=== PATIENT | female | born 1955 | race Caucasian/White ===

== ENCOUNTER → 2016-07-16 | Outpatient (CLI) | payer OTHER ==
[~2016-07-16] MED LIST: ASPCH81 PO; CLIN300C2 PO
--- NOTE | 2016-07-16 17:12 | MAMMOGRAPHY REPORT ---
BILATERAL DIGITAL SCREENING MAMMOGRAM TOMOSYNTHESIS WITH CAD: 07/16/2016 CLINICAL HISTORY: Routine screening. Patient has no complaints. TECHNIQUE: Breast tomosynthesis in addition to standard 2D mammography was performed. Current study was also evaluated with a Computer Aided Detection (CAD) system. COMPARISON: Comparison is made to exams dated: 04/11/2015 mammogram, 06/07/2013 mammogram - [facility], and 11/17/2008. BREAST COMPOSITION: There are scattered areas of fibroglandular density in both breasts. FINDINGS: There are scattered stable benign-appearing microcalcifications in the breasts. Stable n odularity in the anterior retroareolar left breast. No suspicious mass, architectural distortion or cluster of microcalcifications is seen. IMPRESSION: ACR BI-RADS CATEGORY 2: BENIGN There is no mammographic evidence of malignancy. A 1 year screening mammogram is recommended. The p atient will receive written notification of the results. Approximately 10% of breast cancers are not detected with mammography. A negative mammographic repor t should not delay biopsy if a clinically suggestive mass is present. Daiana Mann M.D. ay/:07/16/2016 16:54:43 Forensic Social Worker: Epifanio POWELL(Kingsley)(Nathalie), [facility] letter sent: Normal 1/2 BI-RADS Code: ACR BI-RADS Category 2: Benign
== END | disposition home or self-care (01) ==
LOC: C.MAMM 15:21
PROVIDERS: ATTEND Obstetrics & Gynecology
DX: Z12.31 Encounter for screening mammogram for malignant neoplasm of breast (principal)

== ENCOUNTER → 2016-10-14 | Outpatient (CLI) | payer OTHER | END | disposition home or self-care (01) | LOC: C.PAPS 16:12 | PROVIDERS: ATTEND Obstetrics & Gynecology | DX: Z12.4 Encounter for screening for malignant neoplasm of cervix (principal) ==

== ENCOUNTER → 2016-12-17 | Outpatient (CLI) | payer OTHER ==
[2016-12-24 17:33] LABS: IGA SERUM 75 mg/dL (81-463); TIS TRANS IGA 1 U/mL (<4)
== END | disposition home or self-care (01) ==
LOC: C.LABBC 13:53
PROVIDERS: ATTEND Internal Medicine Geriatric Medicine
DX: K52.9 Noninfective gastroenteritis and colitis, unspecified (principal); R51 Headache

== ENCOUNTER → 2017-02-02 | Day surgery (SDC) | payer OTHER ==
[2017-01-22 14:29] VITALS: Ht 177.8 cm; Wt 81.8 kg
[~2017-02-02] VITALS: Ht 177.8 cm; Wt 81.8 kg
[~2017-02-02] MED LIST changes: -ASPCH81 PO; -CLIN300C2 PO; +PROPOFOL IV EMULSION 10 MG/ML 20 ML VIAL IV ONE; +SODIUM CHLORIDE 0.9% 500ML 500 ML IV ONE
--- NOTE | 2017-02-02 10:34 | Endo History and Physical ---
History & Physical Date of Service: Feb 02, 2017. Chief Complaint: screening Referring Physician: Dr. Rome Thomas History of Present Illness 61 yo CF who presents for screening colonoscopy. Past Surgical History Hx Cardiac Surgery: No Hx Internal Defibrillator: No Hx Pacemaker: No Hx Abdominal Surgery: Yes (INFERTILITY SURGERY, D&C, LAPAROSCOPY) Hx of Implantable Prosthesis: No Hx Post-Op Nausea and Vomiting: No Hx Cancer Surgery: No Hx Thoracic Surgery: No Hx Orthopedic: No Hx Urinary Tract Surgery: No Family History IBD Social History Smoking Status: Never Smoker Hx Substance Use: No Hx Alcohol Use: Yes (VERY RARELY/2X YEARLY) Allergies Coded Allergies: Penicillins (Verified Allergy, Unknown, FAMILY HX OF REACTIONS, 01/22/17) Sulfa Antibiotics (Verified Allergy, Unknown, ITCHING, 01/22/17) Current Medications Reported Home Medications Medications Dose Route/Sig Max Daily Dose Days Date Category No Active Prescriptions or Reported Medications Rx Vital Signs Weight (Kilograms): 81.82 Height (Feet): 5 Height (Inches): 10 Date Time Temp Pulse Resp B/P (MAP) Pulse Ox O2 Delivery O2 Flow Rate FiO2 02/02/17 10:22 36.7 75 18 162/82 (108) 93 Room Air Physical Exam General Appearance: WD/WN, no apparent distress Respiratory/Chest: Auscultation: breath sounds normal Cardiovascular: Heart Auscultation: RRR Abdomen: Bowel Sounds: normal Inspection & Palpation: soft, non-distended, no tenderness, guarding & rebound Assessment and Plan Assessment: 61 yo CF who presents for screening colonoscopy. Plan: Proceed with colonoscopy.
--- NOTE | 2017-02-02 11:20 | Discharge Instructions ---
Endoscopy Patient Instructions Date / Procedure(s) Performed Feb 02, 2017. Colonoscopy Allergy Information Coded Allergies: Penicillins (Verified Allergy, Unknown, FAMILY HX OF REACTIONS, 01/22/17) Sulfa Antibiotics (Verified Allergy, Unknown, ITCHING, 01/22/17) Discharge Date / Findings Feb 02, 2017. Random colon biopsies Stool aspirate collected Internal hemorrhoids Medication Instructions OK to resume all medications today as prescribed Reported Home Medications Medications Dose Route/Sig Max Daily Dose Days Date Category No Active Prescriptions or Reported Medications Rx Provider Instructions Activity Restrictions - No exercising or heavy lifting for 24 hours. - Do not drink alcohol the day of the procedure. - Do not drive a car or operate machinery until the day after the procedure. - Do not make any important decisions or sign important papers in 24 hours after the procedure. Following Day: - Return to full activity which may include returning to work/school. Diet Start your diet with liquids and light foods (jello, soup, juice, toast). Then eat your usual diet if not nauseated. Treatment For Common After Affects For mild abdominal pain, bloating, or excessive gas: - Rest - Eat lightly - Lie on right side Follow-Up Information Follow-up with Dr. Rome Thomas as scheduled Anesthesia Information What You Should Know You have had a procedure that required some medicine to reduce anxiety and discomfort. This treatment is called moderate sedation. After receiving the treatment, you may be sleepy, but you will be able to breathe on your own. The effects of the treatment may last for several hours. Follow these instructions along with Activity/Diet recommendations noted above: * Do NOT do anything where dizziness or clumsiness would be dangerous. * Rest quietly at home today, then you can be up and about tomorrow. * Have a responsible person stay with you the rest of today. * You may have had an I.V. today. If so, you may take the dressing off later today. Recommendations Call your doctor if: * Trouble breathing * Continuous vomiting for more than 24 hours * Temperature above 101 degrees * Severe abdominal pain or bloating * Pain not relieved by pain medicine ordered * There is increased drainage or redness from any incision * A large amount of rectal bleeding greater than 2-3 tablespoons. (If you had a polyp/s removed or have hemorrhoids, a small amount of blood - from the rectum is to be expected.) * You have any unanswered questions or concerns. IN THE EVENT OF A SERIOUS EMERGENCY, GO TO THE NEAREST EMERGENCY ROOM Your discharge instructions were prepared by provider Ryland Niño. Patient Instructions Signature Page Ilda Gardner Patient (or Guardian) Signature/Date: I have read and understand the instructions given to me by my caregivers. Caregiver/RN/Doctor Signature/Date: The above-named patient and/or guardian has received patient instructions on this date. + Original Patient Signature Page (only) stays with chart. Please make copy for patient.
--- NOTE | 2017-02-02 11:25 | GI REPORT ---
Procedure Date: 02/02/2017 10:34 AM Procedure: Colonoscopy Indications: Screening for colorectal malignant neoplasm Medicines: Monitored Anesthesia Care Complications: No immediate complications. Estimated Blood Loss: Estimated blood loss: none. Procedure: Pre-Anesthesia Assessment: - Prior to the procedure, a History and Physical was performed, and patient medications and allergies were reviewed. The patient's tolerance of previous anesthesia was also reviewed. The risks and benefits of the procedure and the sedation options and risks were discussed with the patient. All questions were answered, and informed consent was obtained. Prior Anticoagulants: The patient has taken no previous anticoagulant or antiplatelet agents. ASA Grade Assessment: II - A patient with mild systemic disease. After reviewing the risks and benefits, the patient was deemed in satisfactory condition to undergo the procedure. After I obtained informed consent, the scope was passed under direct vision. Throughout the procedure, the patient's blood pressure, pulse, and oxygen saturations were monitored continuously. The scope was introduced through the anus and advanced to the terminal ileum. The colonoscopy was performed without difficulty. The patient tolerated the procedure well. The quality of the bowel preparation was good. The terminal ileum, ileocecal valve, appendiceal orifice, and rectum were photographed. Findings: Non-bleeding internal hemorrhoids were found during retroflexion. The hemorrhoids were small. Several random biopsies were obtained with cold forceps for histology in the entire colon. Fluid aspiration for cytology was performed in the entire colon. Impression: - Non-bleeding internal hemorrhoids. - Several random biopsies were obtained in the entire colon. - Fluid aspiration was performed. Recommendation: - Resume previous diet. - Continue present medications. - Repeat colonoscopy for surveillance based on pathology results. - Return to primary care physician as previously scheduled. Ryland Niño DO 02/02/2017 11:24:15 AM This report has been signed electronically. Note Initiated On: 02/02/2017 10:34 AM I attest to the content of the Intraoperative Record and orders documented therein, exceptions below
[2017-02-02 11:51] VITALS: BP 134/72; PULSE 72; O2SAT 97
--- NOTE | 2017-02-02 11:58 | Anesthesiology Progress Note ---
Anesthesia Post Op Note Date & Time Feb 02, 2017 at 11:58 Vital Signs Vital Signs Past 12 Hours Date Time Temp Pulse Resp B/P (MAP) Pulse Ox O2 Delivery O2 Flow Rate FiO2 02/02/17 11:36 70 18 129/81 (97) 97 Room Air 02/02/17 11:21 81 18 124/90 (101) 97 Room Air 02/02/17 10:22 36.7 75 18 162/82 (108) 93 Room Air Notes Mental Status: alert / awake / arousable, participated in evaluation Pt Amnestic to Procedure: Yes Nausea / Vomiting: adequately controlled Pain: adequately controlled Airway Patency, RR, SpO2: stable & adequate BP & HR: stable & adequate Hydration State: stable & adequate Anesthetic Complications: no major complications apparent
== END | disposition home or self-care (01) ==
LOC: C.GI 10:02
PROVIDERS: ATTEND Internal Medicine
DX: Z12.11 Encounter for screening for malignant neoplasm of colon (principal); K64.8 Other hemorrhoids; J45.909 Unspecified asthma, uncomplicated

== ENCOUNTER → 2017-04-16 | Outpatient (CLI) | payer OTHER | END | disposition home or self-care (01) | LOC: C.LABSPEC 11:04 | PROVIDERS: ATTEND Nurse Practitioner Family | DX: J02.9 Acute pharyngitis, unspecified (principal) ==

== ENCOUNTER → 2017-04-17 | Outpatient (CLI) | payer OTHER ==
[2017-04-17 13:54] LABS: LYME DISEASE AB IGG NEG (NEG)
[2017-04-17 14:06] LABS: LYME DISEASE AB IGM POS (NEG)
[2017-04-22 09:35] LABS: 18KDIGG BAND NONREACTIVE (NONREACTIVE); 23KDIGG BAND NONREACTIVE (NONREACTIVE); 23KDIGM BAND NONREACTIVE (NONREACTIVE); 28KDIGG BAND NONREACTIVE (NONREACTIVE); 30KDIGG BAND NONREACTIVE (NONREACTIVE); 39KDIGG BAND NONREACTIVE (NONREACTIVE); 39KDIGM BAND NONREACTIVE (NONREACTIVE); 41KDIGG BAND REACTIVE (NONREACTIVE); 41KDIGM BAND NONREACTIVE (NONREACTIVE); 45KDIGG BAND NONREACTIVE (NONREACTIVE); 58KDIGG BAND NONREACTIVE (NONREACTIVE); 66KDIGG BAND NONREACTIVE (NONREACTIVE); 93KDIGG BAND NONREACTIVE (NONREACTIVE)
== END | disposition home or self-care (01) ==
LOC: C.LABBC 11:17
PROVIDERS: ATTEND Nurse Practitioner Family
DX: J02.9 Acute pharyngitis, unspecified (principal)

== ENCOUNTER → 2017-07-02 | Outpatient (CLI) | payer OTHER ==
[2017-07-02 11:23] LABS: BASO % 0.5 %; BASO ABS # 0.03 K/uL (0-0.2); EOS % 5.8 %; EOS ABS # 0.37 K/uL (0-0.5); HEMATOCRIT 44.1 % (37-47); HEMOGLOBIN 14.4 g/dL (12.0-16.0); IG# 0.02 K/uL (0.00-0.02); LYMPH % 39.5 %; LYMPH ABS # 2.52 K/uL (1.2-3.4); MEAN CELL VOLUME 93.4 fL (80-100); MEAN CORPUSCULAR HEMOGLOBIN 30.5 pg (25-34); MEAN CORPUSCULAR HGB CONC 32.7 g/dl (32-36); MEAN PLATELET VOLUME 10.2 fL (7.4-10.4); MONO % 8.2 %; MONO ABS # 0.52 K/uL (0.11-0.59); NEUT % 45.7 %; NEUT ABS # 2.92 K/uL (1.4-6.5); PLATELET COUNT 254 K/uL (130-400); RED CELL DISTRIBUTION WIDTH CV 12.8 % (11.5-14.5); RED CELL DISTRIBUTION WIDTH SD 43.8 fL (36.4-46.3); WHITE BLOOD COUNT 6.38 K/uL (4.8-10.8)
[2017-07-02 11:44] LABS: ALBUMIN 3.8 gm/dl (3.4-5.0); ALT/SGPT 47 U/L (12-78); AST/SGOT 26 U/L (15-37); BLOOD UREA NITROGEN 18 mg/dl (7-18); CALCIUM 9.2 mg/dl (8.5-10.1); CARBON DIOXIDE 28 mmol/L (21-32); CREATININE 0.78 mg/dl (0.60-1.20); GLUCOSE 100 mg/dl (70-99); POTASSIUM 3.9 mmol/L (3.5-5.1); SODIUM 140 mmol/L (136-145)
[2017-07-02 11:52] LABS: ALKALINE PHOSPHATASE 132 U/L (45-117); CHOLESTEROL 210 mg/dl (0-200); LDL CHOLESTEROL CALCULATED 112 mg/dl; TOTAL PROTEIN 7.5 gm/dl (6.4-8.2)
[2017-07-02 12:03] LABS: HEMOGLOBIN A1C 5.8 % (4.5-5.6)
[2017-07-02 12:55] LABS: T3 FREE 3.16 pg/ml (2.30-4.20)
== END | disposition home or self-care (01) ==
LOC: C.LABBC 07:59
PROVIDERS: ATTEND Nurse Practitioner Family
DX: E53.8 Deficiency of other specified B group vitamins (principal); E78.5 Hyperlipidemia, unspecified; G47.33 Obstructive sleep apnea (adult) (pediatric); F32.9 Major depressive disorder, single episode, unspecified; R73.9 Hyperglycemia, unspecified; M19.90 Unspecified osteoarthritis, unspecified site; K52.9 Noninfective gastroenteritis and colitis, unspecified; E55.9 Vitamin D deficiency, unspecified

== ENCOUNTER → 2017-07-22 | Outpatient (CLI) | payer OTHER ==
--- NOTE | 2017-07-22 15:23 | MAMMOGRAPHY REPORT ---
BILATERAL DIGITAL SCREENING MAMMOGRAM TOMOSYNTHESIS WITH CAD: 07/22/2017 CLINICAL HISTORY: Routine screening. Patient has no complaints. TECHNIQUE: Breast tomosynthesis in addition to standard 2D mammography was performed. Current study was also evaluated with a Computer Aided Detection (CAD) system. COMPARISON: Comparison is made to exams dated: 07/16/2016 mammogram, 04/11/2015 mammogram, 06/07/2013 [facility], and 11/17/2008. BREAST COMPOSITION: There are scattered areas of fibroglandular density in both breasts. FINDINGS: No suspicious masses, calcifications, or areas of architectural distortion are noted in ei ther breast. There has been no significant interval change compared to prior exams. IMPRESSION: ACR BI-RADS CATEGORY 1: NEGATIVE There is no mammographic evidence of malignancy. A 1 year screening mammogram is recommended. The pa tient will receive written notification of the results. Approximately 10% of breast cancers are not detected with mammography. A negative mammographic report should not delay biopsy if a clinically suggestive mass is present. [place] Gay M.D. ah/:07/22/2017 11:40:50 Jewel Staker: Kim POWELL(R)(M), [facility] letter sent: Normal 1/2 BI-RADS Code: ACR BI-RADS Category 1: Negative
== END | disposition home or self-care (01) ==
LOC: C.MAMM 11:10
PROVIDERS: ATTEND Obstetrics & Gynecology
DX: Z12.31 Encounter for screening mammogram for malignant neoplasm of breast (principal)

== ENCOUNTER → 2017-09-29 | Outpatient (CLI) | payer OTHER ==
[~2017-09-29] VITALS: Ht 177.8 cm; Wt 84.5 kg
[2017-09-29 15:00] VITALS: BP 146/85; PULSE 84; Ht 177.8 cm; Wt 84.5 kg
== END | disposition home or self-care (01) ==
LOC: C.NEUR 14:32
PROVIDERS: ATTEND Internal Medicine Pulmonary Disease
DX: G47.33 Obstructive sleep apnea (adult) (pediatric) (principal); R53.83 Other fatigue

== ENCOUNTER → 2017-10-22 | Outpatient (CLI) | payer OTHER ==
--- NOTE | 2017-10-23 06:31 | PAP/PSG TECHNICIAN REPORT ---
[facility] [employer] Polysomnogram Report Study name: None Report date: 10/23/2017 Study date: 10/22/2017 Referring Physician: Fuad Garduno M.D. Name: MAISHA PALOMINO Nathalie Interpreting Physician: Fuad Garduno M.D. Date of : 1955 [employer] Insurance: Krystin Moreno RPSGT. Sex: Female Age: 62 Study Type: PSG Weight: 186 lbs 15 in Height: 62 years, Height 5' 10" Neck Circum: BMI: 26.69 Medications: ASPIRIN 81 MG, BUPROPION 150 MG, RABEPRAZOLE 20 MG, VIT B-12 1000 MCG, VIT D 2000 UNIT Patient History 62 yr-old female here for a baseline study. She has had previous sleep testing. She was found to be positive for mild YUE in the past and used CPAP for a time. She lost weight and stropped using CPAP. She is back to assess her YUE. Her [place] scale is 8. The test was started on room air. ETCO2 testing was not utilized during this study. Room 1 Parameters Monitored NPSG: E1-M2, E2-M1, Fp1-M2, Fp2-M1, F3-M2, F4-M2, F4-M1, C3-M2, C4-M2, C4-M1, O1-M2, O2-M2, O2-M1, T3-M2, T4-M1, P3-M2, P4-M1, CHIN1, CHIN2, HR, EKG, Legs, PFLOW, SNOR, FLOW, CFLOW, Tidal Volume, THOR, ABDO, SpO2, PLTH, CPRESS, ETCO2 Wave, ETCO2, pH Sleep Architecture Sleep Stages Time at Lights Off 10:36:49 PM STAGES Time (min.) TST (%) Time at Lights On 5:43:49 AM Wake 84.5 -- Total Recording Time (TRT) 427.00 min. N1 41.0 12 Total Sleep Period (TSP) 403.0 min. N2 175.0 51 Total Sleep Time (TST) 342.5min. N3 43.5 13 Awake Time 84.5 min. REM 83.0 24 Wake after Sleep Onset 60.5 min. Sleep Efficiency (SE) 80 % Sleep Onset Latency (FABRICE) 24.0 min. Number of Stage 1 Shifts None Awakenings 24 Stage Changes 129 Number of REM periods 6 REM 83.0 24 REM Latency 67.0 min. NREM 259.5 76 Body Position Analysis Supine Right Left Side Prone Vertical Total Sleep Time (min.) 83.0 231.8 42.0 273.77 0.0 0.0 Total Sleep Time (%) 20% 68% 12% 80 0% N/A% Total Sleep Time REM (min.) 12.0 71.0 0.0 None 0.0 0.0 Total Sleep Time NREM (min.) 56.7 160.8 42.0 None 0.0 0.0 Intermittent Wake (min.) 14.3 27.9 42.3 None 0.0 0.0 Total Sleep Period (%) 20% None None None None None Arousals Myoclonus (PLM) * Events Count Index Events Count Index Spontaneous 31 5 Events Awake (PLMW) 136 96.6 Respiratory 4 0.7 Events Asleep w/ Arousal (PLMA) 81 14.2 PLM 81 14 Events Asleep w/o Arousal (PLMS) 121 21.2 Snoring 24 4 Total Asleep 202 35.4 Total 139 24 Total 338 47 Respiratory Analysis * CA OA MA CH H RERA Total Count 0 0 0 0 13 2 13 Index 0.0 0.0 0.0 0 2.3 0 2.6 Mean Duration 0.0 0.0 0.0 0.00 15.2 16.7 15.4 Longest Duration 0.0 0.0 0.0 0.00 0.0 17.9 25.5 Respiratory Event Summary Total Supine ~Supine Right Left Prone REM NREM Apneas Count 0 0 0 0 0 N/A 0 0 Index 0.0 0 0 0.0 0.0 N/A 0 0 Hypopneas (4% Desat) Count 13 10 3 2 1 N/A 6 7 Index 2.3 8.7 1 0.5 1.4 N/A 4.3 1.6 Apneas & All Hypopneas Count 13 10 3 2 1 N/A 6 7 Index 2.3 9 1 1 1 N/A 4.3 1.6 Respiratory Events (Pouncing Machine Operator+All Hyp+RERA) Count 13 11 4 2 2 N/A 6 7 Index 2.6 10 1 0.5 2.9 N/A 4.3 2.1 Respiratory Related Arousal Count 4 11 1 0 1 N/A 0 4 Index 0.7 3 0 0 1 N/A 0 1 Snoring Analysis Supine Right Left Prone REM NREM Total Snore duration 6.7 min Snores count 75 147 78 N/A 41 259 300 Snore mean duration 1.3 Sec Snores index 65 38 111 N/A 29.6 59.9 52.6 TST with snoring (%) 2.0% Desaturation Event Summary: Minimum %SpO2 Event Count Mean/Min/Max Duration(sec.) Desaturation Index % Time In Bed > 90 25 23.9 / 6.8 / 48.8 3.5 99.8 86 - 90 0 N/A 0.0 0.2 81 - 85 0 N/A 0.0 0.0 76 - 80 0 N/A 0.0 0.0 71 - 75 0 N/A 0.0 0.0 66 - 70 0 N/A 0.0 0.0 61 - 65 0 N/A 0.0 0.0 56 - 60 0 N/A 0.0 0.0 51 - 55 0 N/A 0.0 0.0 < 50 0 N/A 0.0 0.0 Total REM NREM Awake <50% 0.0 min. 0.0 min. 0.0 min. 0.0 min. 51 - 60% 0.0 min. 0.0 min. 0.0 min. 0.0 min. 61 - 70% 0.0 min. 0.0 min. 0.0 min. 0.0 min. 71 - 80% 0.0 min. 0.0 min. 0.0 min. 0.0 min. 81 - 90% 0.7 min. 0.4 min. 0.3 min. 0.0 min. 91 - 100% 425.6 min. 82.6 min. 259.2 min. 83.8 min. Average 94 94 94 94 Minimum SpO2 86 86 90 91 Desaturation Event Index 3.5 5.8 2.8 3.6 # Desat. Events below 89% 1 1 N/A N/A Time(%) with Saturation below 89% 0.1 0.1 0.0 0.0 Time(min.) with Saturation below 89% 0.2 0.2 0.0 0.0 Time (mins) REM (mins) NREM (mins) % of TST SpO2 Below 90% 4 2 N2 0.1 SpO2 Below 88% 1 0 0 0 Heart Rate Analysis Min (bpm) Max (bpm) Average (bpm) Awake 65 86 72 NREM 61 86 73 REM 63 81 70 Overall 61 86 72 Supplemental O2 Values Minimum O2 level: None Value Start Time End Time [employer] Comments Ms. Palomino slept in the right, left, and supine positions. No cardiac arrhythmias were noted. PLMs and arousals from leg movements were noted. No bruxism noted. Snoring was noted and scored as a 1 on a scale of 1 through 5. (0=no snoring, 5=snoring loud enough to be heard through a closed door or down the snow way) She did not wake up to use the restroom during the night. Ms. Palomino stated that she slept poorly. The final report will be interpreted and signed by a sleep physician. The completed physician report will then be placed in the patient medical record. Therapy (cm H2O) 0 TIB (min.) 427.0 TST (min.) 342.5 Sleep Onset (min.) 24.0 REM Onset From Sleep (min.) 67.0 Sleep Efficiency % 80 Wakefulness (%) 20 Wakefulness (min.) 84.5 NREM 1 (%) 12 NREM 1 (min.) 41.0 NREM 2 (%) 51 NREM 2 (min.) 175.0 NREM 3 (%) 13 NREM 3 (min.) 43.5 REM (%) 24 REM (min.) 83.0 # Arousals 139 Arousal Index 24 # Snore 300 Snore Index 52.6 AHI 2.3 AHI Supine 9 AHI Non-Supine 1 NREM AHI 1.6 REM AHI 4.3 RDI 2.6 # Obstructive Apnea 0 # Central Apnea 0 # Mixed Apnea 0 # Hypopneas 13 RERAs 2 Total Respiratory Events 15 Time Below SpO2 89% (min.) 0.2 Mean NREM SpO2 (%) 94 Mean REM SpO2 (%) 94 Mean Sleep SpO2 (%) 94 Min NREM SpO2 (%) 90 Min REM SpO2 (%) 86 Position Supine (min.) 83.0 Position Non-supine (min.) 273.8 LM Index Sleep 35.4 LM Index NREM 42.3 LM Index REM 13.7 Mean Heart Rate (bpm) 72 Min Heart Rate (bpm) 61
--- NOTE | 2017-10-23 20:35 | POLYSOMNOGRAPH REPORT ---
CLINICAL DATA: A 62-year-old female with previous history of mild sleep apnea on CPAP in the past. She lost weight and stopped using CPAP. She is having recurrent symptoms and was sent back by Adrien Muniz for reevaluation of sleep apnea. SLEEP ARCHITECTURE: Total sleep period was 403 minutes. Total sleep time was 342.5 minutes divided between 259.5 minutes of non-REM sleep and 83 minutes of REM sleep. Sleep onset latency was 24 minutes. REM latency was 67 minutes. Sleep efficiency was 80%. Wake after sleep onset was 60.5 minutes. Sleep consisted of stage N1 12%, stage N2 51%, stage N3 13%, and REM 24%. AROUSAL DATA: 139 arousals were recorded for an index of 24 per hour. 81 were due to PLMs events. PLM DATA: 202 limb movements during sleep were noted for an index of 35.4 per hour with an arousal index of 14.2 per hour. RESPIRATORY DATA: The AHI was 2.3. The RDI was 2.6. There were 13 hypopneic episodes with mean duration of 15.2 seconds. There were 2 RERAs. The longest RERA was 17.9 seconds. OXIMETRY DATA: No significant hypoxemia was seen. Oxygen marilee was 86%. The mean saturation was 94%. Time below 88% was 1 minute. EKG: Heart ranged from 61-86 beats per minute. No arrhythmias were noted. COMMERCIAL ESTIMATOR'S COMMENTS: The patient slept in the right, left, and supine position. No bruxism was noted. Snoring was mild, rated 1 on a scale of 1-5. Frequent arousals were seen due to leg movements. The patient stated that she slept poorly. IMPRESSION: 1. No evidence of clinically significant sleep apnea/hypopnea or nocturnal hypoxemia with an AHI of 2.3 and an RDI of 2.6. The patient's oxygen marilee was 86% with time below 88% 1 minute. 2. Frequent PLMs with a PLM index of 35.4 and an arousal index of 14.2 per hour. RECOMMENDATIONS: There is no need for CPAP or oxygen. Treatment for PLMD may be of benefit. Clinical correlation is needed. MTDD
== END | disposition home or self-care (01) ==
LOC: C.NEUR 21:00
PROVIDERS: ATTEND Internal Medicine Pulmonary Disease
DX: G47.33 Obstructive sleep apnea (adult) (pediatric) (principal); R53.83 Other fatigue

== ENCOUNTER 2023-11-01 14:16 | Observation (INO) ==
[2023-11-01 14:42] LABS: Hematocrit (blood only) 45.3 % (37.0-47.0); Hemoglobin 15.3 g/dl (12.0-16.0); Mean Corpuscular Hemoglobin 30.6 pg (25.0-34.0); Mean Corpuscular Hgb Conc 33.8 g/dL (32.0-36.0); Mean Corpuscular Volume 90.6 fL (80.0-100.0); Mean Platelet Volume 9.9 fL (9.4-12.4); Platelet Count 280 K/uL (130-400); RDW Coefficient of Variation 12.7 % (11.5-14.5); RDW Standard Deviation 41.4 fL (36.4-46.3); White Blood Count 7.54 K/ul (4.8-10.8)
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
[2023-11-01] MEDS: OPTIRAY 320 125ml IV ONE (14:47)
[2023-11-01 14:49] LABS: iSTAT Creatinine 0.9 mg/dl (0.6-1.3); iSTAT Ionized Calcium 1.23 mmol/l (1.12-1.32); iSTAT Potassium 3.9 mmol/L (3.3-5.0)
[2023-11-01 15:05] LABS: Albumin Globulin Ratio 1.7 (0.9-2); Albumin Level 4.3 gm/dl (3.4-5.0); BUN Creatinine Ratio 22.5 (10-20); Bilirubin,Total 0.4 mg/dl (0.2-1.0); Calcium 9.4 mg/dl (8.6-10.3); Creatinine Clr Calc Pharmacy 75.7 ml/min; Est GFR (African American) 77.7 ml/min; Est GFR (Non-African American) 67.1 ml/min; Globulin 2.6 gm/dl (2.5-4.0); Magnesium 2.1 mg/dl (1.7-2.4); Potassium 3.9 mmol/L (3.5-5.1); Total Protein 6.9 gm/dl (6.0-8.3)
--- NOTE | 2023-11-01 15:05 | CT Scan Report ---
CT angio neck with con, CT head/brain wo con, CT angio head w con CLINICAL HISTORY: expressive aphasia TECHNIQUE: Contiguous axial CT images of the head were acquired from the base of the skull to the ezra taiwo without intravenous contrast administration. CT angiography of the head and neck was performed f ollowing intravenous administration of iodinated contrast. Coronal and sagittal MIPS were obtained fr om the axial data set and were submitted for review. Automated dose lowering techniques and/or adjus tment according to patient size were utilized for this examination. All measurements were calculated based on NASCET criteria. CT DOSE: 1140.81 mGy.cm Comparison: Comparison is made to CT head 07/29/2023 FINDINGS: CT head: There is no acute intracranial hemorrhage or evidence of acute territorial infarction. No sh ift of the midline structures, mass effect, or extra-axial abnormalities are shown. Lungs and soft tissues are unremarkable. CTA Neck: A 3 vessel aortic arch is shown. There is no significant atherosclerotic plaque in the aor tic arch or the origins of the innominate, left common carotid, and left subclavian arteries. The co mmon carotid, external carotid, cervical segments of the internal carotid arteries, and the cervical segments of the vertebral arteries are patent without hemodynamically significant stenosis. The left vertebral artery is dominant. CTA Head: The anterior and posterior cerebral circulations are patent. origin of the bilateral posterior cerebral arteries noted. IMPRESSION: 1. No acute intracranial hemorrhage, evidence of acute territorial infarction, or other acute intrac ranial disease process. 2. No occlusion, hemodynamically significant stenosis, or dissection in the major cervical arteries. 3. No occlusion, hemodynamically significant stenosis, aneurysm, dissection, or arteriovenous malfor mation in the major intracranial arteries. Assessment of stenosis of the internal carotid arteries is based on NASCET criteria. ACT 112: Negative or not required by law. Electronically signed by: Tom Villalobos M.D. 11/01/2023 3:02 PM
[2023-11-01 15:08] LABS: Partial Thromboplastin Ratio 0.9; Partial Thromboplastin Time 24 Seconds (21-31); Prothrombin Time 10.8 Seconds (9.0-12.0)
[2023-11-01 15:11] LABS: Troponin I High Sensitivity 5.1 pg/ml (0-14)
--- NOTE | 2023-11-01 15:27 | XRay Report ---
XR chest 1V portable CLINICAL HISTORY: TIA TECHNIQUE: Single frontal radiograph of the chest was obtained. Comparison: None available at the time of this dictation. FINDINGS: Left shoulder arthroplasty is seen. Cardiomegaly is noted. The lungs are clear. No evidence of pleura l effusion or pneumothorax. IMPRESSION: No acute chest disease. ACT 112: Negative or not required by law. Electronically signed by: Tom Villalobos M.D. 11/01/2023 3:25 PM
--- NOTE | 2023-11-01 15:53 | Ultrasound Report ---
US venous doppler LE LT CLINICAL HISTORY: left leg swelling and pain TECHNIQUE: Left lower extremity real-time compression venous ultrasound with Color Doppler imaging. U tilizing real-time ultrasonic imaging multiple real time high-resolution ultrasonic images with compr ession and noncompression maneuvers of the deep venous system in addition to color doppler imaging we re performed from the common femoral vein through the proximal calf veins. COMPARISON: None available at the time of this dictation. FINDINGS/IMPRESSION: Currently there is normal compressibility of the deep venous system from the common femoral vein thro ugh the proximal calf veins. No superficial venous thrombosis is identified. ACT 112: Negative or not required by law. Electronically signed by: Tom Villalobos M.D. 11/01/2023 3:51 PM
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
--- NOTE | 2023-11-01 18:02 | Magnetic Resonance Report ---
MR brain wo con CLINICAL HISTORY: expressive aphasia TECHNIQUE: Multiplanar and multisequence MR images of the brain were obtained without intravenous con trast. Comparison: Comparison is made to CTA head and neck performed same day FINDINGS: No abnormal restricted diffusion is identified. Foci of T2 and FLAIR hyperintensity are noted in the paraventricular areas consistent with chronic small vessel ischemic disease. Ex vacuo ventriculomegal y and sulcal enlargement is noted compatible with diffuse volume loss. No mass is seen. There is no m ass effect or midline shift. There are scattered punctate foci of susceptibility artifact throughout the brain. No extra axial fluid collections are seen. The corpus callosum, pituitary gland, and cereb ellar tonsils appear grossly unremarkable. Flow voids of the major intracranial arterial vessels are identified. The imaged portions of the para nasal sinuses, mastoid air cells, and orbits are unremarkable. IMPRESSION: 1. No evidence of acute infarct. 2. Scattered punctate foci of susceptibility artifact which may represent prior hemorrhage. Clinical correlation is recommended to exclude cerebral amyloid disease. ACT 112: Negative or not required by law. Electronically signed by: Tom Villalobos M.D. 11/01/2023 6:01 PM
[2023-11-01] MEDS ORDERED: PHARMACIST DISCHARGE MED REC CONSULT PRN (18:21)
[2023-11-01] MEDS: ASPIRIN 81 MG ECTAB PO SCH (22:02)
[2023-11-01] MEDS: ATORVASTATIN 40 MG TAB PO SCH (22:02)
[2023-11-01] MEDS: PANTOprazole 40 MG TAB PO SCH (22:03)
[2023-11-01] MEDS: METOPROLOL SUCC 25MG EXT REL TAB PO SCH (22:03)
[2023-11-01 23:59] LABS: Albumin Globulin Ratio 1.7 (0.9-2); Albumin Level 3.9 gm/dl (3.4-5.0); BUN Creatinine Ratio 17.1 (10-20); Bilirubin,Total 0.3 mg/dl (0.2-1.0); Calcium 8.7 mg/dl (8.6-10.3); Creatinine Clr Calc Pharmacy 64.2 ml/min; Est GFR (African American) 63.6 ml/min; Est GFR (Non-African American) 54.9 ml/min; Globulin 2.3 gm/dl (2.5-4.0); Magnesium 2.2 mg/dl (1.7-2.4); Phosphorus 4.1 mg/dl (2.5-4.9); Potassium 3.8 mmol/L (3.5-5.1); Total Protein 6.2 gm/dl (6.0-8.3)
[2023-11-02] MEDS: HYDROmorphone INJ 0.5 MG/0.5 ML SYR IV STA (04:23)
[2023-11-02 04:57] LABS: Basophils # (auto) 0.05 K/uL (0.00-0.20); Basophils % (auto) 0.6 %; Eosinophils # (auto) 0.36 K/uL (0.00-0.50); Eosinophils % (auto) 4.7 %; Hematocrit (blood only) 41.3 % (37.0-47.0); Hemoglobin 13.5 g/dl (12.0-16.0); Immature Granulocytes # (auto) 0.01 K/uL (0.01-0.20); Immature Granulocytes % (auto) 0.1 %; Lymphocytes # (auto) 3.29 K/uL (1.20-3.40); Lymphocytes % (auto) 42.5 %; Mean Corpuscular Hemoglobin 29.7 pg (25.0-34.0); Mean Corpuscular Hgb Conc 32.7 g/dL (32.0-36.0); Mean Platelet Volume 9.9 fL (9.4-12.4); Monocytes # (auto) 0.65 K/uL (0.11-0.59); Monocytes % (auto) 8.4 %; Neutrophils # (auto) 3.38 K/uL (1.40-6.50); Neutrophils % (auto) 43.7 %; Platelet Count 234 K/uL (130-400); RDW Coefficient of Variation 12.7 % (11.5-14.5); RDW Standard Deviation 42.1 fL (36.4-46.3); Red Blood Count 4.54 M/uL (4.20-5.40); White Blood Count 7.74 K/ul (4.8-10.8)
[2023-11-02 05:08] LABS: Anion Gap 8 (3-11); Blood Urea Nitrogen 20 mg/dl (6-23); Calcium 8.9 mg/dl (8.6-10.3); Carbon Dioxide 25 mmol/L (21-32); Chloride 107 mmol/L (98-107); Chol HDL Ratio 5.1 (0-5); Cholesterol 167 mg/dl (0-200); Creatinine Clr Calc Pharmacy 84.2 ml/min; Est GFR (African American) 88.4 ml/min; Est GFR (Non-African American) 76.3 ml/min; Glucose 102 mg/dl (70-99(Fasting)); HDL Cholesterol 33 mg/dl; Potassium 3.8 mmol/L (3.5-5.1); Sodium 140 mmol/L (136-145); Triglycerides 402 mg/dl (0-150)
--- NOTE | 2023-11-02 07:02 | Electrocardiogram Report ---
Test Reason : Blood Pressure : / mmHG Vent. Rate : 078 BPM Atrial Rate : 078 BPM P-R Int : 152 ms QRS Dur : 096 ms QT Int : 386 ms P-R-T Axes : 033 -32 017 degrees QTc Int : 440 ms Normal sinus rhythm Left axis deviation Incomplete right bundle branch block Minimal voltage criteria for LVH, may be normal variant Abnormal ECG When compared with ECG of 04-AUG-2023 12:45, QRS axis Shifted left Confirmed by Adrián Dumont ([id number]) on 11/02/2023 7:02:21 AM Referred By: REFERRED SELF Confirmed By:Arik Dumont
[2023-11-02 07:09] LABS: Estimated Average Glucose 131 mg/dl; Hemoglobin A1C 6.2 % (4.5-5.6)
[2023-11-02 08:34] LABS: Alanine Aminotransferase 65 U/L (7-52); Alkaline Phosphatase 109 U/L (34-104); Aspartate Aminotransferase 45 U/L (13-39); Bilirubin,Total 0.4 mg/dl (0.2-1.0); Total Protein 6.4 gm/dl (6.0-8.3)
[2023-11-02 08:35] LABS: Bilirubin Direct 0.1 mg/dl (0-0.2)
[2023-11-02] MEDS: ENOXAPARIN INJ 40 MG/0.4 ML SYR SQ SCH (08:44)
[2023-11-02] MEDS ORDERED: CLOPIDOGREL BISULFATE 75 MG TAB PO SCH (09:00)
[2023-11-02] MEDS: ACETAMINOPHEN 500 MG TAB PO PRN (09:32)
--- NOTE | 2023-11-02 11:25 | XCELERA ---
[id number]
[2023-11-02] MEDS ORDERED: STROKE PATIENT DISCHARGE STA (12:49)
[2023-11-02] MEDS: CLOPIDOGREL BISULFATE 75 MG TAB PO ONE (13:10)
--- NOTE | 2023-11-02 13:37 | Discharge Summary ---
Date of Service November 02, 2023 Admission HPI Per Admitting Provider 68-year-old female with past medical history of sleep apnea, postconcussion syndrome, GERD, dyslipidemia, depression, TMJ who presented with 30 minutes of aphasia which resolved by time of ER evaluation and suspicious for TIA. 30 minutes of diffuculty using words.At approximately noon today. She does not have any weakness, numbness or tingling. No focal extremity changes. Per her daughter she did not appear to have a facial droop. She could form some words and was not dysarthric, but had difficulty getting the correct words out had increased speech latency. Has never had a stroke or symptoms like this before. No history of heart disease. She does take aspirin daily. She takes a low-dose statin. Denies chest pain, chest pressure. No fever, chills, sweats. No rashes. No nausea/vomiting or abdominal pain. No falls. She does have left leg swelling and follows with orthopedics, Doppler of this did not show any evidence of DVT. She has had recent travel. Medical History: Reviewed Medications: Reviewed Surgical History: Reviewed Family history: Reviewed Allergies: Reviewed Social History: Reviewed Code Status:Full Admission Exam Per Admitting Provider General: A&Ox3. NAD. Cooperative. HEENT: Atraumatic, normocephalic. Pulm: CTAB A&P. -wheezes, -rales, -rhonchi. Symmetrical chest rise. No increased work of breathing. No respiratory distress. Cardiac: RRR, -mrg. Radial pulses intact and symmetrical. Abdominal: Nontender, nondistended, soft. BS present. CRANIAL NERVES: II: Pupils equal and reactive, no relative afferent pupillary defect, no VF cuts III, IV, : EOM intact, no gaze preference or deviation, no nystagmus. V: normal sensation in V1, V2, and V3 segments bilaterally VII: no asymmetry, no nasolabial fold flattening VIII: normal hearing to speech IX, X: normal palatal elevation, no uvular deviation XI: 5/5 head turn and 5/5 shoulder shrug bilaterally XII: midline tongue protrusion MOTOR: RUE: 5/5 Shoulder i flexion, extension, abduction, adduction 5/5 Elbow flexion/extension, wrist flexion/extension 5/5 machine grainer strength, finger flexion/extension, interosseus LUE: 5/5 Shoulder flexion, extension, abduction, adduction 5/5 Elbow flexion/extension, wrist flexion/extension 5/5 machine grainer strength, finger flexion/extension, interosseus RLE: 5/5 to hip flexion, ankle dorsiflexion/plantarflexion LLE: 5/5 to hip flexion, ankle dorsiflexion/plantarflexion REFLEXES: 2/4 patellar, bicepts, and achilles DTR without asymmetry. Bilateral flexor planter response, no Huston's, no clonus SENSORY: Normal to touch,in upper and lower extremities without deficit or asymmetry Principal Diagnosis TIA Discharge Exam Constitutional: well-appearing, no acute distress HEENT: NCAT, no conjunctival injection CV: extremities well-perfused, no LE edema Resp:no increased work of breathing MSK: no gross deformities appreciated Skin: warm, dry, no rash appreciated Neuro: alert, oriented, no focal neurologic deficit appreciated Discharge Data Allergies Allergy/AdvReac Type Severity Reaction Status Date / Time doxycycline Allergy Severe SEVERE Verified 08/13/23 09:54 NAUSEA Sulfa (Sulfonamide Allergy Mild ITCHING Verified 08/13/23 09:54 Antibiotics) oxycodone AdvReac Intermediate "feels Verified 08/13/23 09:54 nuts" Penicillins AdvReac Unknown FAMILY HX Verified 08/13/23 09:54 OF REACTIONS-NONE FOR PT Consultations 11/01/23 16:48 ED Decision to Admit Stat Ordered Studies 11/01/23 14:23 CTA head w con [CT angio head w con] Stat CTA neck with con [CT angio neck with con] Stat 11/01/23 14:24 CT head/brain wo con Stat 11/01/23 14:42 US leg [US venous doppler LE LT] Stat 11/01/23 16:26 MRI Brain [MR brain wo con] Stat Hospital Course (1) Transaminitis: (2) Left leg swelling: (3) Brain TIA: (4) GERD (gastroesophageal reflux disease): Plan Presented with difficulty word finding Probable TIA 30 minutes of expressive aphasia which onset approximately noon 11/01/2023. CTA head/neck, CThead without acute findings MRI without acute findings Echo EF 60+%, no evidence of structural defect Pt on ASA as primary prophylaxis. DAPT initiated at time of admission. Discussed with neurology. ASA+Plavix for 3 weeks, then Plavix only going forward. Last ASA dose should be 6/19/24 Statin increased to atorvastatin 40mg daily - No recurrence of symptoms during visit and no obvious residual deficit. - in setting of acute transaminitis - presentation could possibly be from acute infectious source. Concern of Cognitive deficit - Brain MRI with no acute findings. Has h/o intracerebral hemorrhage. - Information for [facility] provided to arrange follow up as pt was discharged on a holiday Left leg swelling: Plan: Dopplers negative Tickborne panel is pending due to transaminitis Transaminitis: Plan: Tickborne panel pending at time of discharge No abdominal pain or tenderness to palpation Total Time Total Time Spent Total Time Spent (In Minutes): see attending documentation Discharge Plan Discharge Items Patient Disposition: Home - Self-Care Reason For Visit: TIA Discharge Diagnosis: TIA Activity: Per Instructions section Non-emergency contact: Primary Care Provider and Neurologist Call non-emergency contact if: you have any medication questions and your symptoms worsen Follow-up/Referrals: Adrien Muniz III, CRNP [Primary Care Provider] - 11/16/23 4:00 pm (Hospital follow up scheduled November 15 at 4:00) Diet: Heart Healthy Addtl Attending Provider Instructions: You were admitted to the hospital for difficulty speaking. You were diagnosed with a transient ischemic attack (mini-stroke). You were treated with blood thinners. An MRI and CT scan were performed without evidence of acute changes. An echocardiogram was performed which demonstrates that your heart is working normally. We consulted with neurology while you were here who recommended that you continue taking aspirin for the next 3 weeks. We will also add a second blood thinner (Plavix - clopidogrel). After 3 weeks, you should stop taking the aspirin and continue taking the Plavix. We have also increased your dose of suellen rvastatin. You should continue to take this higher dose after you are discharged. A discharge summary will be sent to your primary care physician to ensure continuity of care. Please bring this discharge summary with you to your next office appointment so that your provider can review it at that time. Follow-up appointments: Make a follow-up appointment with your PCP within the next week. It is very important that you follow up with them shortly after discharge from the hospital. You should call to make an appointment with [facility]. Their office can be reached at . Keep all your follow-up appointments as already scheduled. If you cannot make an appointment, notify your provider. Medications: Your medication list has been reviewed and reconciled upon discharge to ensure accuracy and continuity of care. An updated list of all your medications is included with your hospital discharge paperwork. Please review this list closely, and make note of any changes. We sent a new medication called Plavix (clopidogrel) to your pharmacy. Take clopidogrel (75mg) one tablet daily. We sent a new medication called atorvastatin to your pharmacy. Take atorvastatin (40mg) one tablet daily After 3 weeks you should stop taking aspirin. Your last dose will be on 11/25/23 . If you have any issues filling these prescriptions, please call [phone] and ask to leave a message for Dr. Tyrese Gaines. Take your medications as instructed; do not skip a dose of your medicines. Make sure all of your doctors know every medicine you are taking (including xsco-sht-secqjnz medicines, vitamins, and supplements). Call your primary care provider before taking any new medicines (including zuyu-pbl-fennjzd medicines, vitamins, and supplements), because some of these may interact with your current medications, or may make your symptoms worse. Tell your primary care provider if you cannot afford your medications. CONTACT YOUR PRIMARY CARE PROVIDER if you experience any of the following: Difficulty following your treatment plan, or difficulty taking medications CALL 911 OR GO TO THE EMERGENCY DEPARTMENT if you experience any of the following: Sudden, severe abdominal pain or nausea/vomiting Severe chest pain, or chest pain that radiates (moves) to your jaw or arm Sudden, severe shortness of breath or difficulty breathing Thank you for allowing us to participate in your care. Pending Studies at Discharge: No Stand-Alone Forms: My [facility], Medications to Prevent Stroke Medications and DC Order Prescriptions: New atorvastatin 40 mg Tablet 40 mg PO QPM Qty: 30 2RF clopidogrel [Plavix] 75 mg tablet 75 mg PO DAILY Qty: 30 2RF aspirin 81 mg Tablet,Delayed Release (Dr/Ec) 81 mg PO HS Qty: 21 0RF Rx Instructions: Continue taking for 3 weeks. Your last dose will be 11/25/23. Continued metoprolol succinate 25 mg tablet extended release 24 hr 25 mg PO BID Qty: 180 3RF Rx Instructions: 90 day supply filled in September meclizine 25 mg tablet 25 mg PO TID PRN (Reason: dizziness) Qty: 30 0RF Rx Instructions: last filled Jul 2023 ondansetron HCl 4 mg tablet 4 mg PO Q8H PRN (Reason: nausea and vomiting) Qty: 30 1RF Rx Instructions: filled september 2023 diclofenac sodium [Voltaren Arthritis Pain] 1 % gel 4 g topical QID PRN (Reason: pain, mild) Qty: 100 1RF Rx Instructions: filled 11/2022 meloxicam 7.5 mg tablet 7.5 - 15 mg PO DAILY MDD 2 pills Qty: 30 1RF Rx Instructions: filled september 2023 With meals if possible. acetaminophen [Tylenol Extra Strength] 500 mg Tablet 1,000 mg PO Q8H PRN (Reason: Pain) Rx Instructions: otc unable to verify rabeprazole 20 mg tablet,delayed release (DR/EC) 20 mg PO HS Rx Instructions: 90 day supply filled in august TAKE 1 TABLET BY MOUTH ONCE DAILY AT BEDTIME cholecalciferol (vitamin D3) 125 mcg (5,000 unit) tablet 125 mcg PO QAM Rx Instructions: otc unable to verify albuterol sulfate [Ventolin HFA] 90 mcg/actuation HFA aerosol inhaler 1 - 2 puff inhalation .Q4-6H PRN (Reason: shortness of breath or wheezing) Rx Instructions: 1-2 INH 4-6 PRN; Discontinued aspirin [Aspir-81] 81 mg Tablet,Delayed Release (Dr/Ec) 81 mg PO HS Rx Instructions: otc unable to verify atorvastatin 10 mg tablet 10 mg PO QPM Rx Instructions: 90 day supply filled in august TAKE 1 TABLET BY MOUTH ONCE DAILY Discharge Orders: Discharge Order (Routine); Ordered 11/02/23 Ordered By: Tyrese Grace/Other Patient Handouts: Prediabetes, 5 Steps for Eating Healthier Admission Data Admit Date/Time: 11/01/23 16:56 Attending Provider: Chelsie Barclay Admit Provider: Dylan Guzman Primary Care Provider: Adrien Muniz III Other Providers: Dylan Guzman Other Interventions: Discharge Summary Assessment (RN) Last Done: 11/02/23 13:05 Supervising Physician Co-Signing Physician Notes Attending Physician Supervision Note: I independently interviewed and examined the patient and verified the cintron history and physical, reviewed labs and image studies and agree with findings and care plan noted above. Resident Activity Tracking Resident Involvement: Resident Care Provided Care Provided: Adult Hospital Medicine
--- NOTE | 2023-11-04 11:18 | Pharmacy Report ---
Pharmacist Stroke Counseling - Date of Service November 04, 2023 - Scope: Pharmacy has been consulted to provide medication discharge counseling for this patient admitted with transient ischemic attack as per the Pharmacist Discharge Counseling for Stroke Patients Protocol. - Medications on Discharge: Home Medications Medication Instructions Recorded Confirmed acetaminophen 500 mg tablet 1,000 mg PO Q8H PRN Pain 11/08/18 11/01/23 (Tylenol Extra Strength) cholecalciferol (vitamin D3) 125 125 mcg PO QAM 08/04/23 11/01/23 mcg (5,000 unit) tablet rabeprazole 20 mg tablet,delayed 20 mg PO HS 08/04/23 11/01/23 release albuterol sulfate 90 mcg/actuation 1 - 2 puff inhalation .Q4-6H PRN 11/01/23 11/01/23 aerosol inhaler (Ventolin HFA) shortness of breath or wheezing New Rx's Medication Instructions Recorded diclofenac sodium 1 % topical gel 4 g topical QID PRN pain, mild 11/07/22 (Voltaren Arthritis Pain) #100 grams metoprolol succinate 25 mg 25 mg PO BID #180 tabs 12/15/22 tablet,extended release 24 hr meclizine 25 mg tablet 25 mg PO TID PRN dizziness #30 tabs 07/13/23 meloxicam 7.5 mg tablet 7.5 - 15 mg (1 - 2 x 7.5 mg) PO 08/25/23 DAILY #30 tabs ondansetron HCl 4 mg tablet 4 mg PO Q8H PRN nausea and 09/16/23 vomiting #30 tabs aspirin 81 mg tablet,delayed 81 mg PO HS #21 tabs 11/02/23 release atorvastatin 40 mg tablet 40 mg PO QPM #30 tabs 11/02/23 clopidogrel 75 mg tablet (Plavix) 75 mg PO DAILY #30 tabs 11/02/23 - Action: The above medications, specifically ones for stroke treatment/prophylaxis, have been reviewed in detail with the patient and/or patient inside sales representative(s) prior to discharge. This includes indication, common adverse reactions, drug interactions, and medication administration. Medication counseling has been employed using the teach-back method to ensure understanding. - Outcome: The patient and/or patient inside sales representative(s) have demonstrated understanding of the medications. Additional comments: Ilda reported she has not yet started taking ASA + Plavix. She has a follow up appt with her outpatient provider tomorrow for which she plans to discuss risks vs benefits (in terms of a recent fall). Thank you for allowing pharmacy to be involved in the care of this patient. Please call [phone] with any additional questions
== END 2023-11-02 15:15 | disposition home or self-care (01) ==
LOC: 4W 14:16 → ED 14:16 → SUATTDRO 16:56 → 4W 17:24

== ENCOUNTER 2024-06-03 08:00 | Observation (INO) ==
--- NOTE | 2024-05-04 12:24 | PAT Medication Instructions ---
Medication Instructions Date of Service May 04, 2024 Home Medications Medication Instructions Recorded sucralfate 100 mg/mL oral 10 ml PO QID #420 mL 11/05/23 suspension (Carafate) ondansetron 4 mg disintegrating 4 mg PO Q6H PRN nausea and 01/06/24 tablet vomiting #14 tabs metformin 500 mg tablet 500 mg PO BID #60 tabs 04/01/24 cholecalciferol (vitamin D3) 125 mcg (5,000 unit) tablet 125 mcg PO QAM sucralfate 100 mg/mL oral suspension (Carafate) 10 ml PO QID ondansetron 4 mg disintegrating tablet 4 mg PO Q6H PRN nausea and vomiting metformin 500 mg tablet 500 mg PO BID Juice Plus Fruit 1 cap PO QAM Juice Plus Vegetable 1 cap PO QAM atorvastatin 40 mg tablet (Lipitor) 40 mg PO QPM clopidogrel 75 mg tablet (Plavix) 75 mg PO QAM famotidine 40 mg tablet 40 mg PO QPM lisinopril 10 mg tablet (Zestril) 10 mg PO QAM magnesium 500 mg tablet 15 mg PO QPM metoprolol succinate 25 mg tablet,extended release 24 hr 25 mg PO BID rabeprazole 20 mg tablet,delayed release (AcipHex) 20 mg PO QPM ASK your prescriber and surgeon clopidogrel 75 mg tablet (Plavix) 75 mg PO QAM (From anesthesia perspective, clopidogrel/Plavix needs to be stopped 7 days before surgery. Please check if okay with doctor that prescribes this to you) STOP taking 2 weeks before surgery (or as soon as possible if surgery is within 2 weeks) Juice Plus Fruit 1 cap PO QAM Juice Plus Vegetable 1 cap PO QAM DO NOT take the morning of surgery cholecalciferol (vitamin D3) 125 mcg (5,000 unit) tablet 125 mcg PO QAM sucralfate 100 mg/mL oral suspension (Carafate) 10 ml PO QID metformin 500 mg tablet 500 mg PO BID lisinopril 10 mg tablet (Zestril) 10 mg PO QAM Take morning of surgery With a small sip of water, OTHERWISE NOTHING TO EAT OR DRINK AFTER MIDNIGHT: ondansetron 4 mg disintegrating tablet 4 mg PO Q6H PRN nausea and vomiting (if needed) metoprolol succinate 25 mg tablet,extended release 24 hr 25 mg PO BID Take evening before surgery sucralfate 100 mg/mL oral suspension (Carafate) 10 ml PO QID ondansetron 4 mg disintegrating tablet 4 mg PO Q6H PRN nausea and vomiting (if needed) metformin 500 mg tablet 500 mg PO BID atorvastatin 40 mg tablet (Lipitor) 40 mg PO QPM famotidine 40 mg tablet 40 mg PO QPM magnesium 500 mg tablet 15 mg PO QPM metoprolol succinate 25 mg tablet,extended release 24 hr 25 mg PO BID rabeprazole 20 mg tablet,delayed release (AcipHex) 20 mg PO QPM Other Notes If you have any questions please call us at [phone] or [phone] or [phone] or [phone]
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
[~2024-06-03 08:00] MED LIST changes: +BUPIVACAINE 0.5 % 5 MG/1 ML PF 10ML VIAL ONE; +EPINEPHrine INJ 1 MG/ML AMP ONE; -PROPOFOL IV EMULSION 10 MG/ML 20 ML VIAL IV ONE; +ROPIVACAINE 0.5% 5 MG/ML 30 ML VIAL ONE; -SODIUM CHLORIDE 0.9% 500ML 500 ML IV ONE
[2024-06-03] MEDS ORDERED: ONDANSETRON INJ 2 MG/ML 2 ML VIAL ONE ×3 (08:11→12:06)
--- NOTE | 2024-06-03 09:07 | History & Physical Bridge Note ---
Date of Service June 03, 2024 History & Physical Bridge Note I have examined the patient, reviewed the History & Physical and in the interval since the performance of the History & Physical I have noted the following changes of clinical significance: no changes noted
[2024-06-03] MEDS ORDERED: MIDAZOLAM HCL 1 MG/ML 2ML VIAL ONE ×2 (09:09→09:36)
[2024-06-03] MEDS: ACETAMINOPHEN 500 MG TAB PO SCH ×2 (09:15→14:12)
[2024-06-03] MEDS: dexAMETHasone**PF** 10 MG/ML VIAL IV SCH (09:15)
[2024-06-03] MEDS: LR 500ML BOLUS, THEN 15ML/HR IV SCH (09:15)
[2024-06-03] MEDS: FAMOTIDINE 20 MG TAB PO SCH (09:15)
[2024-06-03] MEDS: GABAPENTIN 300 MG CAP PO SCH (09:15)
[2024-06-03] MEDS: LR 60ML/HR IV SCH (09:21)
[2024-06-03] MEDS ORDERED: fentaNYL citrate PF 100 MCG/2 ML VIAL ONE ×2 (09:36→11:42)
[2024-06-03] MEDS ORDERED: LIDOCAINE 2% 2 ML VIAL/AMP(20MG/ML) INFIL ONE (09:37)
[2024-06-03] MEDS ORDERED: PROPOFOL IV EMULSION 10 MG/ML 20 ML VIAL IV ONE ×2 (09:38→10:27)
[2024-06-03] MEDS: TRANEXAMIC ACID 1,000 MG **IV Pre-op IV SCH (09:54)
[2024-06-03] MEDS: ceFAZolin 2000MG 2,000 MG/15 ML SYR IV SCH ×2 (10:15→17:26)
[2024-06-03] MEDS ORDERED: ePHEDrine sulfate 50 MG/ML AMP IV PRN (10:35)
[2024-06-03] MEDS ORDERED: ATROPINE SULFATE 0.1 MG/ML 10ML SYR IV PRN (10:35)
[2024-06-03] MEDS ORDERED: diphenhydrAMINE 50 MG/ML VIAL ONE (10:37)
[2024-06-03] MEDS ORDERED: ROCURONIUM BROMIDE 10 MG/ML 5 ML VIAL IV ONE (10:39)
[2024-06-03] MEDS: ORTHO JOINT ANESTHETIC ONE (10:55)
[2024-06-03] MEDS: ROPIV 0.5% 246mg, Ketorolac 30mg, EPINEPHrine 0.5mg in NSS INFIL SCH (10:55)
[2024-06-03] MEDS: TRANEXAMIC ACID 1,000 MG **IV Intra-op IV SCH (11:26)
[2024-06-03] MEDS ORDERED: DEXAMETHASONE SOD INJ 4 MG/ML VIAL ONE (12:06)
[2024-06-03] MEDS ORDERED: ePHEDrine sulfate 50 MG/ML AMP ONE (12:06)
--- NOTE | 2024-06-03 12:31 | XRay Report ---
XR knee LT 1 or 2V routine HISTORY: 69 years-old Female Surgical Post Op left knee arthroplasty COMPARISON: 07/29/2023 TECHNIQUE: 2 views of the left knee FINDINGS: Total joint arthroplasty with patellar resurfacing. Anterior midline skin adriano with expected posto perative soft tissue swelling and deep tissue air. No acute fracture or unexpected opaque foreign bod y. IMPRESSION: Satisfactory alignment of the total joint arthroplasty. ACT 112: Negative or not required by law. The above report was generated using voice recognition software. It may contain grammatical, syntax o r spelling errors. Electronically signed by: Meliton Lynn M.D. 06/03/2024 12:30 PM
--- NOTE | 2024-06-03 12:40 | Anesthesiology Progress Note ---
Date of Service June 03, 2024 Anesthesia Post Procedure Vital Signs Vital Signs: Temp Pulse Pulse Resp BP Pulse Ox O2 Del Method 06/03/24 12:35 36.2 C L 69 15 124/89 95 Room Air 06/03/24 12:25 72 15 132/66 95 Room Air 06/03/24 12:15 71 15 144/76 H 96 Room Air 06/03/24 12:05 80 15 128/73 100 Oxymask 06/03/24 11:55 36.0 C L 73 16 126/65 100 Oxymask 06/03/24 08:49 36.7 C 69 20 176/98 H 98 Room Air O2 Flow Rate 06/03/24 12:35 06/03/24 12:25 06/03/24 12:15 06/03/24 12:05 5 06/03/24 11:55 5 06/03/24 08:49 Pain Intensity Left Knee: Pain Intensity: 6 Transfer of Care Handoff Completed per policy Notes Mental Status: alert / awake / arousable Patient Amnestic to Procedure: Yes Nausea / Vomiting: adequately controlled Pain: adequately controlled Airway Patency, RR, SpO2: stable & adequate BP & HR: stable & adequate Hydration State: stable & adequate Anesthetic Complications: no major complications apparent
--- NOTE | 2024-06-03 13:07 | Operative Report ---
PG Post Operative Report Pre & Post Diagnosis Operation Date: 06/03/24 11:00 Pre-Op Diagnosis: Left Knee Arthritis Post-Op Diagnosis: Left Knee Arthritis I identified the patient and participated in the time-out.: Yes Procedure Operation Date: 06/03/24 11:00 Actual Procedures p Left Total Knee Arthroplasty(Left) - Chad Prater DO Surgeon Chad Prater DO Rounding And Backing Machine Operator Benigno Prado PA-C Estimated Blood Loss 30 Findings Consistent with Post-Op Diagnosis Specimens Left femoral and tibial bone Description of Procedure Implants used: I used a Torey Persona total knee arthroplasty system with a size 10 narrow PS femur, E tibia, 31 oval patella, and a size 10 CPS polyethylene bearing. All components were cemented in place with Biomet cement. Ilda arrived [facility] for the above procedure. She was seen in the preoperative holding area and the operative extremity was identified and signed. She was given a preoperative antibiotic, TXA, a spinal anesthetic and an adductor nerve block. She was taken back to the operating room and laid on the table in supine position. She was given basic sedation. The operative knee was then prepped and draped in sterile fashion. A timeout was done, and the patient and the operative extremity was properly identified. A midline incision was made directly over the patella. Dissection was taken down to the extensor mechanism. A subvastus arthrotomy was used. The medial retinaculum was released and the fat pad was mostly excised. The knee was flex ed and the ACL, PCL, and meniscus were removed. A drill was sent down the center of the femoral canal followed by an intramedullary peter. Off that peter a distal femoral cutting block was placed. 9 mm was resected off the distal femur at 5 of valgus. A posterior referencing AP sizing guide was then placed on the distal femur. The femur measured to be a size 10. 2 drill holes were placed in 3 of external rotation. A 4-in-1 cutting block was then impacted into place. Anterior, posterior, and chamfer cuts were then made. The proximal tibia was then exposed. An external tibial alignment guide was placed. A tibial cut guide was then anchored in place and the proximal tibia was then resected. The posterior aspect of the knee was then opened up and any additional meniscus fragments and osteophytes were removed. The tibia measured to be a size E. The tibial plate was then placed in the appropriate rotation and the tibia was drilled and punched. Trial components were then placed. I used a size 10 CPS polyethylene insert. The knee was brought through a full range of motion and felt to be stable. The peg holes for the femoral component were then drilled. The patella was then everted and 9 mm was resected off the posterior aspect of the patella. The patella measured to be a size 31 oval. 3 peg holes were then drilled. A trial patella was placed. The knee was once again brought through a full range of motion and felt to be stable. Trial components were then removed. The surrounding soft tissues were injected with 100 cc of an orthopedic pain control cocktail. All components were then cemented into place with Biomet cement. The final polyethylene insert was then snapped into place. Once cement was dry the tourniquet was deflated. Hemostasis was obtained. A dilute betadyne lavage was then done for 3 minutes. The joint was then irrigated with normal saline solution. The subvastus arthrotomy was then closed with #1 Vicryl suture. The skin was closed with 2-0 Vicryl, 3-0V lock suture, and adriano. A soft compressive dressing was placed. She was then transferred to a hospital bed and taken to the postanesthesia care unit in stable condition. She tolerated the procedure well. Benigno Prado PA-C, was present for the entire procedure. He was critical for patient positioning, prepping, draping, retraction exposure, wound closure and application of sterile dressing. I attest to the content of the Intraoperative Record and any orders documented therein. Any exceptions are noted below.
[2024-06-03] MEDS ORDERED: ONDANSETRON INJ 2 MG/ML 2 ML VIAL IV PRN (13:52)
[2024-06-03] MEDS ORDERED: NALOXONE HCL 0.4 MG/1 ML VIAL/CARP IV PRN (13:52)
[2024-06-03] MEDS ORDERED: HYDROmorphone INJ 0.5 MG/0.5 ML SYR IV PRN (13:52)
[2024-06-03] MEDS ORDERED: SUCRALFATE 1 GM/10 ML UDC PO SCH (13:52)
[2024-06-03] MEDS ORDERED: METOCLOPRAMIDE HCL INJ 5 MG/ML 2 ML VIAL IV PRN (13:52)
[2024-06-03] MEDS ORDERED: ONDANSETRON 4 MG OD TAB PO PRN (13:52)
[2024-06-03] MEDS ORDERED: MAGNESIUM HYDROXIDE SUSP 30 ML UDC PO PRN (13:52)
[2024-06-03] MEDS ORDERED: bisacodyL 10 MG SUPP PR PRN (13:52)
[2024-06-03] MEDS ORDERED: oxyCODONE HCL IR 5 MG TAB (IMMEDIATE RELEASE) PO PRN (13:52)
[2024-06-03] MEDS: KETOROLAC TROMETHAMINE 15 MG/ML VIAL IV SCH (14:12)
[2024-06-03] MEDS: traMADol HCL 50 MG TABLET PO PRN (16:06)
[2024-06-03] MEDS: metFORMIN HCL 500 MG TAB PO SCH (17:26)
[2024-06-03] MEDS: DOCUSATE SODIUM 100 MG CAP PO SCH (20:44)
[2024-06-03] MEDS: SENNA 8.6 MG TAB PO SCH (20:44)
[2024-06-03] MEDS: ATORVASTATIN 40 MG TAB PO SCH (20:45)
[2024-06-03] MEDS: ASPIRIN 81 MG ECTAB PO SCH (20:46)
[2024-06-03] MEDS: FAMOTIDINE 40 MG TABLET PO SCH (20:46)
[2024-06-03] MEDS: PANTOprazole 40 MG TAB PO SCH (20:46)
[2024-06-03] MEDS: METOPROLOL SUCC 25MG EXT REL TAB PO SCH (20:46)
[2024-06-03] MEDS ORDERED: NON-FORMULARY MEDICATION (Magnesium 500 mg Tablet) PO SCH (21:00)
[2024-06-03 23:26] VITALS: RESP 16
[2024-06-04 03:22] VITALS: PULSE 62; O2SAT 95
[2024-06-04 07:17] VITALS: BP 144/78; TEMP 98.4
[2024-06-04] MEDS: lisinopril 10 MG TAB PO SCH (08:19)
[2024-06-04] MEDS: dexAMETHasone 4 MG TAB PO SCH (08:19)
[2024-06-04] MEDS: CLOPIDOGREL BISULFATE 75 MG TAB PO SCH (08:19)
[2024-06-04] MEDS: MULTIVITAMIN TAB PO SCH (08:20)
[2024-06-04] MEDS: CHOLECALCIFEROL 125 MCG (5,000 UNITS) TAB PO SCH (08:20)
--- NOTE | 2024-06-04 08:20 | Discharge Summary ---
Date of Service June 04, 2024 Principal Diagnosis Same as "Discharge Diagnosis" noted below under Discharge Instructions. Discharge Exam On physical exam of the left knee, the dressing is clean and dry. Her leg is out full extension. She has active dorsiflexion plantarflexion of her left ankle.. Discharge Data Procedures Performed Operation Date: 06/03/24 11:00 Actual Procedures p Left Total Knee Arthroplasty(Left) - Chad Prater DO Ordered Studies 06/03/24 05:00 US - OR guided needle placemen Routine Hospital Course (1) Status post left knee replacement: On June 03, 2024 Ilda arrived at [facility] and underwent a left knee replacement without complication. She had a spinal anesthetic. Postoperatively she was started on aspirin for DVT prophylaxis and transferred to the general orthopedic floors. Her hospital course was uneventful. On postop day #1, her vital signs were stable and her pain was well-controlled. She was able to participate well with physical therapy doing ambulation and range of motion exercises. She was then discharged to home. She will follow-up with orthopedics in 2 weeks. PG Care Time/CCT Total # of Minutes Spent Total Time Spent with Patient: Total time spent is greater than 50% in coordination of care (as documented) at patient's floor/unit and/or counseling patient: Discharge Plan Discharge Items Patient Disposition: Home - Self-Care Reason For Visit: POST OP Discharge Diagnosis: Status post left knee replacement Activity: Per Instructions section Non-emergency contact: Surgeon Call non-emergency contact if: your wound has increased redness and your wound has increased drainage Follow-up/Referrals: Ashley Oakes CRNP [Primary Care Provider] - Diet: Regular Addtl Attending Provider Instructions: Activity and Therapy Recommendations: * If you are using [facility] then therapy will be provided at your home until they feel you have accomplished all of your goals. * If you are using [facility] then Physical Therapy will be provided until they feel you are ready to start Outpatient Physical Therapy. * If you are not using home therapy then Outpatient Physical Therapy should start about 3-5 days from your day of surgery. Therapy will last about 6-10 weeks * It is important not to put a pillow under your knee when you are relaxing or sleeping. It is just as important to make sure you are getting your knee perfectly straight as it is to regain your knee bend. * You were shown a series of exercises in the hospital. Do these exercises three times each day including the exercises you were shown in physical therapy. * Get up and walk several times each day. For the first four weeks, try not to stand or walk for more than one hour at a time. If you do stand or walk for more than one hour, you will not hurt anything, but your leg will likely swell. * As you feel comfortable, you may change from the walker or crutches to a cane and then to independent walking. Medications: * Narcotic You will likely be sent home from the hospital with a prescription for the narcotic pain medication that worked best throughout your stay. * Cefadroxil -take the antibiotic twice a day for 10 days to help prevent infection. * Aspirin Most patients will be required to take Aspirin 81mg twice a day for 6 weeks after surgery. This is obtained [id number] and a prescription is not necessary. * Other medications may be prescribed for specific circumstances. If you have any questions, please call the office at . * Resume previous home medications unless otherwise instructed TEDs/Elastic Stockings: The white elastic stockings help limit swelling and prevent blood clots from forming in your legs.~ The more you wear them, the more they work. Wear them for six weeks. Dressing Care: The dressing can be changed after physical therapy on postop day #1. Daily dry dressing changes for a few days, especially if the incision is still draining some. If the incision is not draining then you may leave the adriano open to air. If there is a little bit of drainage or if the adriano are getting stuck on your clothing then cover the incision with a dry dressing. The adriano will be removed at your 2 week follow-up appointment. Showering: You may shower 5 days from the day of surgery as long as the incision is no longer draining. You may shower with the adriano exposed. Let soapy water run over the adriano and pat them dry. Do not scrub or soak the incision. Diet: You may resume your previous diet. Things To Watch For: * Drainage from the incision site that occurs more than one week after your surgery. * Increased redness at the incision site. * Fever above 102 degrees Fahrenheit. * Unusual chest pain or shortness of breath. * Call [facility] at with any of the above problems Follow-Up Visit: Follow-up with Dr. Prater's office 2-3 weeks after your day of surgery. We will remove your adriano and answer any questions. If you have any additional questions or concerns, Dr Prater is usually in the office at the same time and will be available An appointment was probably scheduled when you signed-up for surgery in the office. If you have any questions call Office Instructions: More detailed instructions as well as Frequently Asked Questions were provided in a folder by our office when you signed-up for surgery. Please review these instructions when you get home. If you have any further questions or concerns, please feel free to call the office at [phone] Pending Studies at Discharge: No Stand-Alone Forms: [facility] Medications and DC Order Prescriptions: New cefadroxil 500 mg capsule 500 mg PO BID 10 Days Qty: 20 0RF aspirin [Adult Aspirin Regimen] 81 mg tablet,delayed release (DR/EC) 81 mg PO BID Qty: 84 0RF Continued ondansetron 4 mg tablet,disintegrating 4 mg PO Q6H PRN (Reason: nausea and vomiting) Qty: 14 0RF clopidogrel [Plavix] 75 mg tablet 75 mg PO QAM Qty: 30 2RF metformin 500 mg tablet 500 mg PO BID Qty: 60 2RF magnesium 500 mg Tablet 15 mg PO QPM Juice Plus Fruit 1 cap PO QAM Juice Plus Vegetable 1 cap PO QAM atorvastatin [Lipitor] 40 mg tablet 40 mg PO QPM rabeprazole [AcipHex] 20 mg tablet,delayed release (DR/EC) 20 mg PO QPM Rx Instructions: TAKE 1 TABLET BY MOUTH ONCE DAILY AT BEDTIME famotidine 40 mg tablet 40 mg PO QPM lisinopril [Zestril] 10 mg tablet 10 mg PO QAM metoprolol succinate 25 mg tablet extended release 24 hr 25 mg PO BID Rx Instructions: TAKE 1 TABLET BY MOUTH TWICE DAILY tramadol 50 mg tablet 50 mg PO Q6H PRN (Reason: pain) Qty: 30 0RF sucralfate [Carafate] 100 mg/mL suspension 10 ml PO UD Patient Comments: "I have it but haven't been taking it" Rx Instructions: qid. doesnt currently need medication but wanted left on list swish in mouth and swallow; use after food/drink: May substitute tablets as a slurry. cholecalciferol (vitamin D3) 125 mcg (5,000 unit) tablet 125 mcg PO QAM Rx Instructions: otc unable to verify Discharge Orders: Discharge Order (Routine); Ordered 06/04/24 Ordered By: Chad Prater Admission Data Admit Date/Time: 06/03/24 11:56 Attending Provider: Chad Prater Admit Provider: Chad Prater Primary Care Provider: Ashley Oakes
--- NOTE | 2024-06-04 08:20 | Orthopedic Progress Note ---
Date of Service June 04, 2024 Assessment & Plan (1) Status post left knee replacement: Overall she is doing very well. She is not having much pain in the left knee. She will be seen by physical therapy today for ambulation and range of motion exercises. The nursing staff can change her dressing after physical therapy. She is on aspirin for DVT prophylaxis. She can be discharged to home later today. She will follow-up orthopedics in 2 weeks. Ivan Gnosales was seen and examined at bedside this morning. Overall she is doing very well. She is not having much pain in the left knee. She has been up and ambulating to the bathroom. She has no complaints.. Review of Systems All systems reviewed & are unremarkable except as noted in HPI & below. Physical Exam On physical exam of the left knee, the dressing is clean and dry. Her leg is out full extension. She has active dorsiflexion plantarflexion of her left ankle.. Results & Data Results & Data Laboratory Results . Diagnostic Findings Postoperative x-rays of the left knee show the prosthesis to be in anatomic alignment without any evidence of fracture complication, or loosening.. PG Care Time/CCT Total # of Minutes Spent Total Time Spent with Patient: Total time spent is greater than 50% in coordination of care (as documented) at patient's floor/unit and/or counseling patient: Coding Level of Care Code 68755 Post Operative Follow-Up Diagnoses Status post left knee replacement Z96.652
[2024-06-04] MEDS ORDERED: [UNRECOGNIZED DRUG - OTHER] PO SCH (09:00)
[2024-06-04] MEDS ORDERED: JUICE PLUS FRUIT PO SCH (09:00)
== END 2024-06-04 13:05 | disposition home or self-care (01) ==
LOC: 3E 08:00 → ASU 08:00

== ENCOUNTER 2024-09-17 20:57 | Observation (INO) ==
--- NOTE | 2024-09-17 21:30 | Emergency Department Note ---
Impression & Plan Stroke-like symptom, Hypertension, History of transient ischemic attack (TIA) ED Provider Note NAME: MAISHA PALOMINO AGE: 69 SEX: F : 1955 ARRIVES VIA: Walk-In INFORMANT: Patient ED PROVIDER(S): Ashu Clark MD CHIEF COMPLAINT: Word finding difficulty PLAN: Disposition: Admit MEDICAL DECISION MAKING: The patient is a pleasant 69-year-old woman with a past medical history of TIA in October 2023 on atorvastatin and Plavix who presents to the emergency department via walk-in accompanied by her daughter for evaluation of acute onset episode of word finding difficulty that occurred around 1800 tonight where the patient was talking with her daughter and knew what she wanted to say but for a brief 15- second had word finding difficulty. The patient acknowledges that this episode was much less severe than her prior episode which had lasted approximately 20-30 minutes. Following the episode the patient was on short-term dual antiplatelet therapy before transitioning to Plavix alone. Otherwise denies any recent fevers, chills, cough congestion, chest pain, shortness of breath. She reports that she has been under increased stress recently attempting to get different projects done such as remodeling projects and so she has been sleeping less (going to bed late and waking early). On evaluation the patient is no acute distress, afebrile blood pressure in the 180s/90s and vital signs otherwise stable. She appears clinically dry. She exhibits no focal logic deficits at this time. EKG without overt acute ischemia. CXR negative for acute cardiopulmonary process per my personal preliminary review/interpretation. WBC, H/H and platelets within normal limits. Chemistry without metabolic acidosis. Electrolytes and LFTs unremarkable. High-sensitivity troponin is undetectable UA with RBCs and otherwise no evidence of infection. CT of the head and CTA of the head and neck were performed and were negative for ICH, ischemia or severe narrowing occlusion of large vessels. Given the patient's increased risk given history of TIA with strokelike symptom this evening, the patient and daughter at the bedside agree with plan for admission for further evaluation. Case was d/w Dr. Trujillo, [facility] hospitalist who will evaluate the patient for admission. Further management per admitting team. Triage Nursing notes reviewed and agree them. Prior/external medical records reviewed Vital Signs: reviewed Differential diagnosis: Infection, dehydration, metabolic abnormality, hypo/hyperglycemia, electrolyte disturbance, anemia, hypoxia, cardiac sources, intracerebral event, toxicologic, neurologic, as well as other pathologies. ER treatment provided: See below. Diagnostics interpreted by me: ECG: Normal sinus rhythm, 78 bpm, no ectopy, incomplete RBBB, no overt ST elevation or depression. QTc 451, QRS 96. Cardiac Monitoring: An order for continuous cardiac monitoring was placed and demonstrated normal sinus rhythm, 78 bpm, no ectopy. Laboratory studies: See below Imaging studies: See below Consultation(s): Dr. Trujillo, [facility] hospitalist. HPI: Per MDM. ROS: See above HPI for pertinent positives & negatives. A total of 10 systems reviewed and were otherwise negative. VITALS:See Below PHYSICAL EXAMINATION: GENERAL: Awake, alert, in no distress, BMI 30.1. HENT: Normocephalic, atraumatic. Oropharynx unremarkable. EYES: Normal conjunctiva. Sclera non-icteric. EOMI. No nystamgus. PEARRL. NECK: Supple. No nuchal rigidity. FROM. No JVD. RESPIRATORY: Clear to auscultation. CARDIAC: Regular rate, normal rhythm. Extremities warm and well perfused. Pulses equal. ABDOMEN: Soft, non-distended. No tenderness to palpation. No rebound or guarding. No masses. MUSCULOSKELETAL: Chest examination reveals no tenderness. The back is symmetrical on inspection without obvious abnormality. There is no CVA tenderness to palpation. No joint edema. LOWER EXTREMITIES: Calves are equal size bilaterally and non-tender. No edema. No discoloration. NEURO: Normal sensorium. No sensory or motor deficits noted. SKIN: No rash or jaundice noted. Ashu Clark MD Past Med/Surg History Problem List (Updated 09/18/24 @ 02:16 by Ashu Clark MD) History of transient ischemic attack (TIA) (Acute) Hypertension (Acute) Stroke-like symptom (Acute) Hx of transient ischemic attack (TIA) "Probable TIA" 11/01/23 [facility] ER ("brief speech problem that resolved after about 20-30 min"), no acute findings on head/neck imaging [facility] Neuro visit 11/10/23 Prediabetes Oral Hypertension Aphasia Status post left knee replacement (~05/2024) S/P ureteral stent placement (Acute) S/P cystoscopy with ureteral stent placement (Acute) Episodic lightheadedness (Acute) Nausea (Acute) Right inguinal hernia Carpal tunnel syndrome, right Encounter for pre-operative examination Chronic rhinitis SNHL (sensorineural hearing loss) IgA deficiency (Chronic) GERD (gastroesophageal reflux disease) (Chronic) Vitamin D deficiency (Chronic) B12 deficiency (Chronic) Medical History History of asthma Degenerative spondylolisthesis Per records Lumbar spinal stenosis Per records Osteoarthritis Periodic limb movement disorder no problems since 2019 incident with injury from cow TMJ (temporomandibular joint syndrome) No current/recent issues Right inguinal hernia Post concussion syndrome Trauma r/t being "hit by a cow" 10/2018 Residual dizziness/vertigo/fatigue- at baseline Follows with Dr. Russo/[facility] neurology GERD (gastroesophageal reflux disease) Depression Situational Dyslipidemia Chronic nausea Possibly r/t lactose intolerance per patient Infertility, female Sleep apnea Patient states retest showed no YUE History of COVID-19 05/2020: nausea, fever > resolved History of anemia Anxiety "Situational" Traumatic subarachnoid hemorrhage Trauma r/t being "hit by a cow" 10/2018 > Bleed resolution on f/u head CT Follows with Dr. Russo/[facility] neurology Chronic diarrhea Possibly r/t lactose intolerance per patient Surgical History Hx of left inguinal hernia repair Left Inguinal Hernia Open Repair With Mesh Hx of reduction of closed fracture Closed reduction nasal fracture (08/06/23): LMA#4 at [facility] History of total replacement of left shoulder joint (2018) History of colonoscopy (06/2022) History of dilation and curettage History of laparoscopy Family History Mother Osteoporosis Dementia Family history of reaction to anesthesia "SLOW TO WAKE UP" Palpitations Allergies Clotting disorder Heart disease Stroke Father Prostate cancer Diabetes Hypertension Family history of benign prostatic hyperplasia Gallbladder disease Stroke syndrome Cancer Daughter Crohn's disease Juvenile idiopathic arthritis Brother Muscle ache Denies family history of Ovarian cancer Myocardial infarction Breast cancer Colorectal cancer Ulcerative colitis Social History Smoking Status: Never smoker Second Hand Exposure: No; Do You Dip or Chew Tobacco: No; Hx Alcohol Use: No Hx Substance Use: No Preferred Language: Belarusian Communication Ability: Effective Visual Impairment: No Limitations Hearing Ability: Normal Vocational Rehabilitation Counselor Required: No Beliefs That Will Affect Care: None marital status: Current Living Situation: Spouse current occupational status: employed 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 How many Children do You have: 3 Feels Safe at Home: Yes Childhood Exposure to Second-Hand Smoke: No Diet: regular Diet Comment: regular caffeine: No during the past year weight has: remained stable Dental Care, Regularly: Yes Physical Activity Frequency: Daily Seatbelt Use: always Sunscreen Use: Yes Assistive Devices: Walker Allergies Allergies Allergy/AdvReac Type Severity Reaction Status Date / Time Sulfa (Sulfonamide Allergy Mild Itching Verified 09/03/24 10:25 Antibiotics) doxycycline AdvReac Severe Nausea Verified 09/03/24 10:25 oxycodone AdvReac Intermediate "feels Verified 09/03/24 10:25 nuts" Penicillins AdvReac Unknown Family Verified 09/03/24 10:25 Reactions - Pts has not had problems in past Home Meds Home Medications Medication Instructions Recorded Confirmed cholecalciferol (vitamin D3) 125 125 mcg PO QAM 08/04/23 09/03/24 mcg (5,000 unit) tablet Juice Plus Fruit 1 cap PO QAM 05/03/24 08/16/24 Juice Plus Vegetable 1 cap PO QAM 05/03/24 08/16/24 lisinopril 10 mg tablet (Zestril) 10 mg PO QAM 05/03/24 09/03/24 magnesium 500 mg tablet 15 mg PO QPM 05/03/24 09/03/24 metoprolol succinate 25 mg 25 mg PO BID 05/03/24 09/03/24 tablet,extended release 24 hr rabeprazole 20 mg tablet,delayed 20 mg PO QPM 05/03/24 09/03/24 release (AcipHex) Previous Rx's Medication Instructions Recorded atorvastatin 40 mg tablet (Lipitor) 40 mg PO QPM #30 tabs 06/07/24 metformin 500 mg tablet 500 mg PO BID #60 tabs 06/30/24 famotidine 40 mg tablet 40 mg PO QPM #30 tabs 07/14/24 ondansetron 4 mg disintegrating 4 mg PO Q6H PRN nausea and 08/16/24 tablet vomiting #14 tabs clopidogrel 75 mg tablet (Plavix) 75 mg PO QAM #30 tabs 09/05/24 Results & Data (ED) Vital Signs Vital Signs - 24 hr 09/17/24 21:01 09/17/24 21:16 09/17/24 22:12 Temperature 36.8 C Temperature Source Temporal Artery Scan Pulse Rate 80 73 70 Pulse Rate [Apical] Pulse Strength Normal Respiratory Rate 16 20 Respiratory Effort / Characteristics Non-Labored Spontaneous Respiratory Depth Normal Respiratory Pattern Regular Blood Pressure 189/96 H 172/97 H Blood Pressure [Right Arm] Blood Pressure Mean 127 122 Blood Pressure Mean [Right Arm] Blood Pressure Position Sitting Pulse Oximetry 97 97 Oxygen Delivery Method Room Air Sepsis Recent Fever Within 48 Hours No Sepsis New/Unexplained Change in Mental Status No Sepsis Action Taken by Nursing No Action Required 09/17/24 22:45 09/17/24 22:49 Temperature Temperature Source Pulse Rate 74 Pulse Rate [Apical] 75 Pulse Strength Respiratory Rate 20 18 Respiratory Effort / Characteristics Respiratory Depth Normal Respiratory Pattern Blood Pressure 172/97 H Blood Pressure [Right Arm] 172/97 H Blood Pressure Mean 122 Blood Pressure Mean [Right Arm] 122 Blood Pressure Position Pulse Oximetry 98 98 Oxygen Delivery Method Room Air Sepsis Recent Fever Within 48 Hours Sepsis New/Unexplained Change in Mental Status Sepsis Action Taken by Nursing Laboratory Data Attestation: I reviewed the patient's lab results. 09/17/24 21:25 09/17/24 21:25 Lab Results 09/17/24 09/17/24 09/17/24 Range/Units 21:09 21:25 22:23 WBC 7.97 (4.8-10.8) K/ul RBC 4.55 (4.20-5.40) M/uL Hgb 13.2 (12.0-16.0) g/dl Hct 40.3 (37.0-47.0) % MCV 88.6 (80.0-100.0) fL MCH 29.0 (25.0-34.0) pg MCHC 32.8 (32.0-36.0) g/dL RDW Std Deviation 44.6 (36.4-46.3) fL RDW Coeff of Solomon 13.7 (11.5-14.5) % Plt Count 262 (130-400) K/uL MPV 9.9 (9.4-12.4) fL Immature Gran % (Auto) 0.3 % Neut % (Auto) 47.5 % Lymph % (Auto) 41.0 % Turner % (Auto) 7.8 % Eos % (Auto) 2.9 % Baso % (Auto) 0.5 % Neut # (Auto) 3.79 (1.40-6.50) K/uL Lymph # (Auto) 3.27 (1.20-3.40) K/uL Turner # (Auto) 0.62 H (0.11-0.59) K/uL Eos # (Auto) 0.23 (0.00-0.50) K/uL Baso # (Auto) 0.04 (0.00-0.20) K/uL Immature Gran # (Auto) 0.02 (0.01-0.20) K/uL PT 10.5 (9.0-12.0) Seconds INR 1.0 (0.9-1.1) APTT 21 (21-31) Seconds PTT Ratio 0.8 Sodium 141 (136-145) mmol/L Potassium 3.9 (3.5-5.1) mmol/L Chloride 109 H (98-107) mmol/L Carbon Dioxide 25 (21-32) mmol/L Anion Gap 7 (3-11) BUN 20 (6-23) mg/dl Creatinine 0.83 (0.6-1.2) mg/dl Est Cr Clr Drug Dosing 78.1 ml/min eGFR 76.74 BUN/Creatinine Ratio 24.1 H (10-20) Glucose 110 H (70-99(Fasting)) mg/dl POC Glucose 110 H (70-99) mg/dl Calcium 9.2 (8.6-10.3) mg/dl Magnesium 2.0 (1.7-2.4) mg/dl Total Bilirubin 0.4 (0.2-1.0) mg/dl AST 23 (13-39) U/L ALT 22 (7-52) U/L Alkaline Phosphatase 144 H (34-104) U/L Troponin I High Sens < 2.3 (0-14) pg/ml Total Protein 6.7 (6.0-8.3) gm/dl Albumin 4.2 (3.4-5.0) gm/dl Globulin 2.5 (2.5-4.0) gm/dl Albumin/Globulin Ratio 1.7 (0.9-2) Urine Color Straw Urine Appearance Slightly Cloudy (Clear) Urine pH 5.5 (4.5-7.5) Ur Specific Downey 1.025 (1.000-1.030) Urine Protein Negative (Negative) Urine Glucose (UA) Negative (Negative) Urine Ketones Negative (Negative) Urine Blood 2+ H (Negative) Urine Nitrite Negative (Negative) Urine Bilirubin Negative (Negative) Urine Urobilinogen Negative (Negative) Ur Leukocyte Esterase Negative (Negative) Urine RBC >20 H (0-2) /hpf Urine WBC 0-5 (0-5) /hpf Ur Epithelial Cells 3-5 H (0-2) /hpf Urine Bacteria None Seen (None Seen) Administered Medications Discontinued Medications Aspirin (Aspirin 81 Mg Ectab) 81 mg PO NOW STA Stop: 09/18/24 00:51 Last Admin: 09/18/24 01:37 Dose: 81 mg Documented By: HOWARD Sodium Chloride (Nss) 1,000 mls @ 999 mls/hr IV .Q1H1M ONE Stop: 09/17/24 22:30 Last Infusion: 09/17/24 23:01 Dose: Infused Documented By: Admin: 09/17/24 21:47 Dose: 999 mls/hr Documented By: WILL Ioversol (Optiray 320 125ml) 118 ml IV ONCE ONE Stop: 09/17/24 22:34 Last Admin: 09/17/24 22:34 Dose: 118 ml Documented By: KARAN Imaging Data Radiologist's Impression: Chest X-Ray 09/17/24 21:29 Exam(s): XR CXR 1 VIEW EXAM: XR Chest, 1 View CLINICAL HISTORY: Reason for exam: neuro deficit, acute stroke suspected. TECHNIQUE: Frontal view of the chest. COMPARISON: 11/05/2023 FINDINGS: Lungs: No consolidation. No overt edema. Pleural space: No pleural effusion. No pneumothorax. Heart: Unremarkable. No cardiomegaly. Bones/joints: Left shoulder prosthesis. IMPRESSION: No acute findings in the chest. Electronically signed by: Doron Baird MD 09/17/24 23:[address] 09/17/24 21:29 Exam(s): CT HEAD Without Contrast EXAM: CT Head Without Intravenous Contrast CLINICAL HISTORY: Reason for exam: neuro deficit, acute stroke suspected. TECHNIQUE: Axial computed tomography images of the head/brain without intravenous contrast. CTDI is 36 mGy and DLP is 624 mGy-cm. Automated exposure control was utilized for the study. A dose lowering technique was utilized adhering to the principles of ALARA. COMPARISON: No relevant prior studies available. FINDINGS: Brain: No intracranial hemorrhage, mass-effect, or cerebral edema. Mild periventricular low-attenuation consistent with chronic microvascular ischemic changes. Ventricles: Unremarkable. Bones/joints: Unremarkable. No fracture. Soft tissues: Unremarkable. Sinuses: No acute sinusitis. Mastoid air cells: Unremarkable as visualized. IMPRESSION: 1. No acute intracranial abnormality. Electronically signed by: Doron Baird MD 09/17/24 23:21 PM Head CTA 09/17/24 21:29 Exam(s): CTA HEAD With Contrast IV Amt: 118 ml opti 320 EXAM: CT Angiography Head With Intravenous Contrast CLINICAL HISTORY: Reason for exam: neuro deficit, acute stroke suspected. TECHNIQUE: Axial computed tomographic angiography images of the head with intravenous contrast. CTDI is 36 mGy and DLP is 624 mGy-cm. Automated exposure control was utilized for the study. A dose lowering technique was utilized adhering to the principles of ALARA. MIP reconstructed images were created and reviewed. CONTRAST: Patient received 118 ml opti 320 of IV contrast COMPARISON: 11/05/2023 FINDINGS: Right internal carotid artery: Intracranial segment is patent with no significant stenosis. No aneurysm. Right anterior cerebral artery: No occlusion or significant stenosis. No aneurysm. Right middle cerebral artery: No occlusion or significant stenosis. No aneurysm. Right posterior cerebral artery: No occlusion or significant stenosis. No aneurysm. Right vertebral artery: Unremarkable as visualized. Left internal carotid artery: Intracranial segment is patent with no significant stenosis. No aneurysm. Left anterior cerebral artery: No occlusion or significant stenosis. No aneurysm. Left middle cerebral artery: No occlusion or significant stenosis. No aneurysm. Left posterior cerebral artery: No occlusion or significant stenosis. No aneurysm. Left vertebral artery: Unremarkable as visualized. Basilar artery: No occlusion or significant stenosis. No aneurysm. IMPRESSION: Normal head CTA. Electronically signed by: Doron Baird MD 09/17/24 23:22 PM Neck CTA 09/17/24 21:29 Exam(s): CTA NECK With Contrast IV Amt: 118 ml opti 320 EXAM: CT Angiography Neck With Intravenous Contrast CLINICAL HISTORY: Reason for exam: neuro deficit, acute stroke suspected. TECHNIQUE: Routine carotid CT angiography protocol was performed with intravenous contrast. NASCET criteria using the distal ICAs for comparison were used for evaluation of stenoses. CTDI is 12 mGy and DLP is 466 mGy-cm. Automated exposure control was utilized for the study. A dose lowering technique was utilized adhering to the principles of ALARA. MIP reconstructed images were created and reviewed. CONTRAST: Patient received 118 ml opti 320 of IV contrast COMPARISON: 11/05/2023. FINDINGS: VASCULATURE: Right common carotid artery: No occlusion or significant stenosis. No dissection. Right internal carotid artery: Extracranial segment is patent with no occlusion or significant stenosis. No dissection. Right vertebral artery: No occlusion or significant stenosis. No dissection. Left common carotid artery: No occlusion or significant stenosis. No dissection. Left internal carotid artery: Extracranial segment is patent with no occlusion or significant stenosis. No dissection. Left vertebral artery: No occlusion or significant stenosis. No dissection. NECK: Bones/joints: Unremarkable. No acute fracture. Soft tissues: Unremarkable. Lung apices: Clear. CAROTID STENOSIS REFERENCE USING NASCET CRITERIA: % ICA stenosis = (1 - narrowest ICA diameter/diameter of distal cervical ICA) x 100. Mild - <50% stenosis. Moderate - 50-69% stenosis. Severe - 70-94% stenosis. Near occlusion - 95-99% stenosis. Occluded - 100% stenosis. IMPRESSION: Negative CTA neck. Electronically signed by: Doron Baird MD 09/17/24 23:24 PM Discharge Plan Visit Data Chief Complaint: TIA Symptoms Stated Complaint: SLURRRED WORDS, NAUSEA, HEADACHE ED Provider: Ashu Clark Discharge Problem: Stroke-like symptom, Hypertension, History of transient ischemic attack (TIA) Patient Disposition: Admitted As Inpatient Discharge Instructions Interventions: ED Discharge Assessment Last Done: 09/18/24 01:40 Discharge Problem: Hypertension Qualifiers: Hypertension type: unspecified Qualified Code(s): I10 - Essential (primary) hypertension
[2024-09-17] MEDS: SODIUM CHLORIDE 0.9% 1,000 ML IV ONE (21:47)
[2024-09-17 21:53] LABS: Basophils # (auto) 0.04 K/uL (0.00-0.20); Basophils % (auto) 0.5 %; Eosinophils # (auto) 0.23 K/uL (0.00-0.50); Eosinophils % (auto) 2.9 %; Hematocrit (blood only) 40.3 % (37.0-47.0); Hemoglobin 13.2 g/dl (12.0-16.0); Immature Granulocytes # (auto) 0.02 K/uL (0.01-0.20); Immature Granulocytes % (auto) 0.3 %; Lymphocytes # (auto) 3.27 K/uL (1.20-3.40); Mean Corpuscular Hgb Conc 32.8 g/dL (32.0-36.0); Mean Corpuscular Volume 88.6 fL (80.0-100.0); Mean Platelet Volume 9.9 fL (9.4-12.4); Monocytes # (auto) 0.62 K/uL (0.11-0.59); Monocytes % (auto) 7.8 %; Neutrophils # (auto) 3.79 K/uL (1.40-6.50); Neutrophils % (auto) 47.5 %; Platelet Count 262 K/uL (130-400); RDW Coefficient of Variation 13.7 % (11.5-14.5); RDW Standard Deviation 44.6 fL (36.4-46.3); Red Blood Count 4.55 M/uL (4.20-5.40); White Blood Count 7.97 K/ul (4.8-10.8)
[2024-09-17 22:07] LABS: Alanine Aminotransferase 22 U/L (7-52); Albumin Globulin Ratio 1.7 (0.9-2); Albumin Level 4.2 gm/dl (3.4-5.0); Alkaline Phosphatase 144 U/L (34-104); Anion Gap 7 (3-11); Aspartate Aminotransferase 23 U/L (13-39); BUN Creatinine Ratio 24.1 (10-20); Bilirubin,Total 0.4 mg/dl (0.2-1.0); Blood Urea Nitrogen 20 mg/dl (6-23); Calcium 9.2 mg/dl (8.6-10.3); Carbon Dioxide 25 mmol/L (21-32); Chloride 109 mmol/L (98-107); Creatinine Clr Calc Pharmacy 78.1 ml/min; Globulin 2.5 gm/dl (2.5-4.0); Glucose 110 mg/dl (70-99(Fasting)); Potassium 3.9 mmol/L (3.5-5.1); Sodium 141 mmol/L (136-145); Total Protein 6.7 gm/dl (6.0-8.3)
[2024-09-17 22:14] LABS: Troponin I High Sensitivity < 2.3 pg/ml (0-14)
[2024-09-17 22:18] LABS: Partial Thromboplastin Ratio 0.8; Partial Thromboplastin Time 21 Seconds (21-31); Prothrombin Time 10.5 Seconds (9.0-12.0)
[2024-09-17] MEDS: OPTIRAY 320 125ml IV ONE (22:34)
--- NOTE | 2024-09-17 23:21 | CT Scan Report ---
Exam(s): CT HEAD Without Contrast EXAM: CT Head Without Intravenous Contrast CLINICAL HISTORY: Reason for exam: neuro deficit, acute stroke suspected. TECHNIQUE: Axial computed tomography images of the head/brain without intravenous contrast. CTDI is 36 mGy and DLP is 624 mGy-cm. Automated exposure control was utilized for the study. A dose lowering technique was utilized adhering to the principles of ALARA. COMPARISON: No relevant prior studies available. FINDINGS: Brain: No intracranial hemorrhage, mass-effect, or cerebral edema. Mild periventricular low-attenuation consistent with chronic microvascular ischemic changes. Ventricles: Unremarkable. Bones/joints: Unremarkable. No fracture. Soft tissues: Unremarkable. Sinuses: No acute sinusitis. Mastoid air cells: Unremarkable as visualized. IMPRESSION: 1. No acute intracranial abnormality. Electronically signed by: Doron Baird MD 09/17/24 23:21 PM
--- NOTE | 2024-09-17 23:23 | CT Scan Report ---
Exam(s): CTA HEAD With Contrast IV Amt: 118 ml opti 320 EXAM: CT Angiography Head With Intravenous Contrast CLINICAL HISTORY: Reason for exam: neuro deficit, acute stroke suspected. TECHNIQUE: Axial computed tomographic angiography images of the head with intravenous contrast. CTDI is 36 mGy and DLP is 624 mGy-cm. Automated exposure control was utilized for the study. A dose lowering technique was utilized adhering to the principles of ALARA. MIP reconstructed images were created and reviewed. CONTRAST: Patient received 118 ml opti 320 of IV contrast COMPARISON: 11/05/2023 FINDINGS: Right internal carotid artery: Intracranial segment is patent with no significant stenosis. No aneurysm. Right anterior cerebral artery: No occlusion or significant stenosis. No aneurysm. Right middle cerebral artery: No occlusion or significant stenosis. No aneurysm. Right posterior cerebral artery: No occlusion or significant stenosis. No aneurysm. Right vertebral artery: Unremarkable as visualized. Left internal carotid artery: Intracranial segment is patent with no significant stenosis. No aneurysm. Left anterior cerebral artery: No occlusion or significant stenosis. No aneurysm. Left middle cerebral artery: No occlusion or significant stenosis. No aneurysm. Left posterior cerebral artery: No occlusion or significant stenosis. No aneurysm. Left vertebral artery: Unremarkable as visualized. Basilar artery: No occlusion or significant stenosis. No aneurysm. IMPRESSION: Normal head CTA. Electronically signed by: Doron Baird MD 09/17/24 23:22 PM
--- NOTE | 2024-09-17 23:25 | CT Scan Report ---
Exam(s): CTA NECK With Contrast IV Amt: 118 ml opti 320 EXAM: CT Angiography Neck With Intravenous Contrast CLINICAL HISTORY: Reason for exam: neuro deficit, acute stroke suspected. TECHNIQUE: Routine carotid CT angiography protocol was performed with intravenous contrast. NASCET criteria using the distal ICAs for comparison were used for evaluation of stenoses. CTDI is 12 mGy and DLP is 466 mGy-cm. Automated exposure control was utilized for the study. A dose lowering technique was utilized adhering to the principles of ALARA. MIP reconstructed images were created and reviewed. CONTRAST: Patient received 118 ml opti 320 of IV contrast COMPARISON: 11/05/2023. FINDINGS: VASCULATURE: Right common carotid artery: No occlusion or significant stenosis. No dissection. Right internal carotid artery: Extracranial segment is patent with no occlusion or significant stenosis. No dissection. Right vertebral artery: No occlusion or significant stenosis. No dissection. Left common carotid artery: No occlusion or significant stenosis. No dissection. Left internal carotid artery: Extracranial segment is patent with no occlusion or significant stenosis. No dissection. Left vertebral artery: No occlusion or significant stenosis. No dissection. NECK: Bones/joints: Unremarkable. No acute fracture. Soft tissues: Unremarkable. Lung apices: Clear. CAROTID STENOSIS REFERENCE USING NASCET CRITERIA: % ICA stenosis = (1 - narrowest ICA diameter/diameter of distal cervical ICA) x 100. Mild - <50% stenosis. Moderate - 50-69% stenosis. Severe - 70-94% stenosis. Near occlusion - 95-99% stenosis. Occluded - 100% stenosis. IMPRESSION: Negative CTA neck. Electronically signed by: Doron Baird MD 09/17/24 23:24 PM
[2024-09-17 23:34] LABS: Appearance Urine Slightly Cloudy (Clear); Bilirubin Urine Negative (Negative); Blood Urine 2+ (Negative); Glucose Urine UA Negative (Negative); Ketones Urine Negative (Negative); Leukocyte Esterase Urine Negative (Negative); Nitrite Urine Negative (Negative); Protein Urine Negative (Negative); Specific Gravity Urine 1.025 (1.000-1.030); Urobilinogen Urine Negative (Negative); pH Urine 5.5 (4.5-7.5)
[2024-09-17 23:45] LABS: Color Urine Straw
[2024-09-17 23:47] LABS: Bacteria Urine None Seen (None Seen); RBC Urine >20 /hpf (0-2); WBC Urine 0-5 /hpf (0-5)
--- NOTE | 2024-09-17 23:52 | XRay Report ---
Exam(s): XR CXR 1 VIEW EXAM: XR Chest, 1 View CLINICAL HISTORY: Reason for exam: neuro deficit, acute stroke suspected. TECHNIQUE: Frontal view of the chest. COMPARISON: 11/05/2023 FINDINGS: Lungs: No consolidation. No overt edema. Pleural space: No pleural effusion. No pneumothorax. Heart: Unremarkable. No cardiomegaly. Bones/joints: Left shoulder prosthesis. IMPRESSION: No acute findings in the chest. Electronically signed by: Doron Baird MD 09/17/24 23:51 PM
--- NOTE | 2024-09-18 00:42 | History & Physical Report ---
Date of Service September 18, 2024 Assessment & Plan (1) Aphasia: (2) Hx of transient ischemic attack (TIA): (3) Hypertension: (4) Prediabetes: Plan Patient is a 69-year-old female with past medical history of TIA October 2023, traumatic subarachnoid hemorrhage 2018, hyperlipidemia, hypertension, asthma, prediabetes, GERD, sleep apnea, osteoarthritis. Patient presented with an episode of transient aphasia in which she was unable to formulate a sentence when speaking with her daughter. Symptom lasted only a few seconds at 1800 4/12 and has not reoccurred. Her left pupil is dilated on exam but otherwise neurologic exam is WNL and no focal deficits noted. Diagnostic imaging in the ED was essentially negative. She is being admitted for stroke workup including MRI. #Transient aphasia - History of traumatic subarachnoid hemorrhage 2018. History of TIA October 2023, previously followed with Dr. Mckenzie, was on aspirin and Plavix x 3 weeks transitioned to now Plavix. Head CT, Head/neck CTA negative for acute changes. Echocardiogram in 2023 revealed no PFO, grade 1 diastolic dysfunction. - stroke without TNK order set (No TNK given sx >4hrs and resolved) - active ROM, Q4H neuro checks - start ASA 81mg daily, first dose on admission - continue Plavix 75 mg qam - continue Atorvastatin 40 mg daily - consider increase to 80mg daily after AM lipid panel - Allow for permissive hypertension with goal parameters 220/110 until MRI resulted - brain MRI ordered - lipid panel and A1C with AM labs #HTN - mildly elevated with permissive hypertension - Hold lisinopril and metoprolol x24 hrs #prediabetes - Controlled on Metformin at home. Most recent A1C 6.0%. Patient reportedly checks BSG at home and has been stable. - continue metformin #HLD - Lipid panel 03/2024 showed TG 324, total C 151, LDL 47, HDL 39 - continue statin #Transaminitis chronic suspected 2/2 long-term Tylenol use, AST/ALT improved, alk phos 144 (mildly elevated from baseline) - hold Tylenol - continue statin as cholesterol control essential with above - Repeat CMP with a.m. labs #Left knee replacement/osteoarthritis patient reports recent left knee replacement currently still following with PT and takes daily Tylenol for pain - With elevated LFTs chronically, recommended that patient decrease Tylenol use and consider Voltaren gel and fish oil in outpatient setting - Voltaren gel prn ordered #Insomnia patient struggling with insomnia at home, she believes contributing to TIA symptoms above - Melatonin as needed #GERD stable Continue PPI #Sleep apnea resolved, no current CPAP or BiPAP - monitor O2 overnight as could be contributing to insomnia VTE ppx: SCDs, defer chemical PPx with CVA workup above Dispo: med/tele obs; anticipate discharge home 09/18 after MRI. Patient would like handouts on healthy diet plans at discharge. Admission and Anticipated Discharge Date Admission Date: 09/18/24 History of Present Illness Chief Complaint: tia symptoms Primary Care Provider: ALETHEA Portillo Patient is a 69-year-old female with past medical history of TIA October 2023, traumatic subarachnoid hemorrhage 2018, hyperlipidemia, hypertension, asthma, prediabetes, GERD, sleep apnea, osteoarthritis. Patient presented with an episode of transient aphasia in which she was unable to formulate a sentence when speaking with her daughter. Symptom lasted only a few seconds at 1800 on 09/17 and has not reoccurred. Her left pupil is dilated on exam but otherwise neurologic exam is WNL and no focal deficits noted. Diagnostic imaging in the ED was essentially negative. She is being admitted for stroke workup including MRI. Patient seen at bedside with her daughter present. She stated that as around 6:00 she threw her dog's toy away because the rubber was showing and when her daughter asked her why she threw it away she was unable to respond. Symptoms resolved within a few seconds. Patient stated that when she put her glasses on she noticed the right eye was blurry however when she lifted her glasses up it resolves, she believes her glasses may have been dirty but she could have a had a couple seconds of right eye blurry vision. Patient stated when she had her TIA in 2023 she believes she had similar symptoms which resulted in mumbling of her words however she cannot exactly remember. Patient does endorse headache upon arrival to the ED however it is since resolved at time of admission. She thought her symptoms might have been because she has had poor sleep at home and continues to wake up at 4 AM daily. She has been checking her blood sugars and they have been stable, did go as low as 88 a few days ago. She otherwise denies any other strokelike symptoms, no numbness/tingling, no visual changes, no facial droop. Patient is most concerned about preventing further TIAs or strokes, extensively educated on medication compliance (which she does endorse being compliant on), healthy diet, etc. Patient does not use nicotine products. Patient was very concerned about taking Tylenol twice daily for several months due to having her left knee replaced and having residual pain. She also takes Tylenol to help with a hernia that is to be repaired in the near future. Patient noted that she had transaminitis several months ago thought to be secondary to Tylenol use, alk phos is mildly elevated at time of admission. Educated patient to try to titrate off Tylenol and consider other options like Voltaren gel and fish oil as do not recommend long-term NSAID use for pain either. Allergies Allergy/AdvReac Type Severity Reaction Status Date / Time Sulfa (Sulfonamide Allergy Mild Itching Verified 09/03/24 10:25 Antibiotics) doxycycline AdvReac Severe Nausea Verified 09/03/24 10:25 oxycodone AdvReac Intermediate "feels Verified 09/03/24 10:25 nuts" Penicillins AdvReac Unknown Family Verified 09/03/24 10:25 Reactions - Pts has not had problems in past Home Medications Medication Instructions Recorded Confirmed Type cholecalciferol (vitamin D3) 125 125 mcg PO QAM 08/04/23 09/03/24 History mcg (5,000 unit) tablet Juice Plus Fruit 1 cap PO QAM 05/03/24 08/16/24 History Juice Plus Vegetable 1 cap PO QAM 05/03/24 08/16/24 History lisinopril 10 mg tablet (Zestril) 10 mg PO QAM 05/03/24 09/03/24 History magnesium 500 mg tablet 15 mg PO QPM 05/03/24 09/03/24 History metoprolol succinate 25 mg 25 mg PO BID 05/03/24 09/03/24 History tablet,extended release 24 hr rabeprazole 20 mg tablet,delayed 20 mg PO QPM 05/03/24 09/03/24 History release (AcipHex) atorvastatin 40 mg tablet (Lipitor) 40 mg PO QPM #30 tabs 06/07/24 09/03/24 Rx metformin 500 mg tablet 500 mg PO BID #60 tabs 06/30/24 09/03/24 Rx famotidine 40 mg tablet 40 mg PO QPM #30 tabs 07/14/24 09/03/24 Rx ondansetron 4 mg disintegrating 4 mg PO Q6H PRN nausea and 08/16/24 09/03/24 Rx tablet vomiting #14 tabs clopidogrel 75 mg tablet (Plavix) 75 mg PO QAM #30 tabs 09/05/24 Rx Past Med/Surg History Problem List History of transient ischemic attack (TIA) (Acute) Hypertension (Acute) Stroke-like symptom (Acute) Hx of transient ischemic attack (TIA) "Probable TIA" 11/01/23 [facility] ER ("brief speech problem that resolved after about 20-30 min"), no acute findings on head/neck imaging [facility] 11/10/23 Prediabetes Oral Hypertension Aphasia Status post left knee replacement (~05/2024) S/P ureteral stent placement (Acute) S/P cystoscopy with ureteral stent placement (Acute) Episodic lightheadedness (Acute) Nausea (Acute) Right inguinal hernia Carpal tunnel syndrome, right Encounter for pre-operative examination Chronic rhinitis SNHL (sensorineural hearing loss) IgA deficiency (Chronic) GERD (gastroesophageal reflux disease) (Chronic) Vitamin D deficiency (Chronic) B12 deficiency (Chronic) Medical History History of asthma Degenerative spondylolisthesis Per records Lumbar spinal stenosis Per records Osteoarthritis Periodic limb movement disorder no problems since 2018 incident with injury from cow TMJ (temporomandibular joint syndrome) No current/recent issues Right inguinal hernia Post concussion syndrome Trauma r/t being "hit by a cow" 10/2018 Residual dizziness/vertigo/fatigue- at baseline Follows with Dr. Russo/[facility] neurology GERD (gastroesophageal reflux disease) Depression Situational Dyslipidemia Chronic nausea Possibly r/t lactose intolerance per patient Infertility, female Sleep apnea Patient states retest showed no YUE History of COVID-19 05/2020: nausea, fever > resolved History of anemia Anxiety "Situational" Traumatic subarachnoid hemorrhage Trauma r/t being "hit by a cow" 10/2018 > Bleed resolution on f/u head CT Follows with Dr. Russo/[facility] neurology Chronic diarrhea Possibly r/t lactose intolerance per patient Surgical History Hx of left inguinal hernia repair Left Inguinal Hernia Open Repair With Mesh Hx of reduction of closed fracture Closed reduction nasal fracture (08/06/23): LMA#4 at [facility] [place] History of total replacement of left shoulder joint (2018) History of colonoscopy (06/2022) History of dilation and curettage History of laparoscopy Family History Mother Osteoporosis Dementia Family history of reaction to anesthesia "SLOW TO WAKE UP" Palpitations Allergies Clotting disorder Heart disease Stroke Father Prostate cancer Diabetes Hypertension Family history of benign prostatic hyperplasia Gallbladder disease Stroke syndrome Cancer Daughter Crohn's disease Juvenile idiopathic arthritis Brother Muscle ache Denies family history of Ovarian cancer Myocardial infarction Breast cancer Colorectal cancer Ulcerative colitis Social History Smoking Status: Never smoker Second Hand Exposure: No; Do You Dip or Chew Tobacco: No; Hx Alcohol Use: No Hx Substance Use: No Preferred Language: Frisian Communication Ability: Effective Visual Impairment: No Limitations Hearing Ability: Normal Service Observer Chief Required: No Beliefs That Will Affect Care: None marital status: Current Living Situation: Family current occupational status: employed 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 How many Children do You have: 3 Other Information That Helps Us Care for You: No Feels Safe at Home: Yes Safety Concerns: Feels Safe At This Time Childhood Exposure to Second-Hand Smoke: No Diet: regular Diet Comment: regular caffeine: No during the past year weight has: remained stable Dental Care, Regularly: Yes Physical Activity Frequency: Daily Seatbelt Use: always Sunscreen Use: Yes Assistive Devices: Glasses Review of Systems Review of Systems: See HPI Physical Exam Physical Exam: The patient is awake, alert and oriented 3, well developed and well nourished, normocephalic and atraumatic, in no acute distress. Non-toxic appearing. HEENT- EOMI, mucous membranes moist. Hearing grossly intact. Heart-normal S1 and S2. No murmurs, rubs or gallops. Lungs-clear bilaterally, no respiratory distress, no accessory muscle use. Abdomen-normal bowel sounds and soft. No ascites noted. Non-tender. Extremities- no clubbing, cyanosis, or edema. Rheumatologic-normal range of motion. Psychiatric-normal affect. Eyes: Left eye more dilated than right Neurologic: no focal motor deficits and not confused Speech / Cognition: normal speech Cranial Nerves: PERRL and EOM intact bilaterally Results & Data Results & Data Vital Signs (Past 12 Hours) Vital Signs Temp Pulse Pulse Resp BP BP Pulse Ox 09/17/24 22:49 75 18 172/97 H 98 09/17/24 22:45 74 20 172/97 H 98 09/17/24 22:12 70 20 172/97 H 97 09/17/24 21:16 73 09/17/24 21:01 36.8 C 80 16 189/96 H 97 O2 Del Method 09/17/24 22:49 Room Air 09/17/24 22:45 09/17/24 22:12 09/17/24 21:16 09/17/24 21:01 Room Air Laboratory Results reviewed CBC, CMP, UA, troponin, magnesium Diagnostic Findings reviewed neck CTA, head CTA, head CT, CXR Medications Administered ED1L NSS Admissionaspirin 81 Mg p.o. ECG Additional Comments: ordered Code Status & VTE Plan Code Status full code VTE Prophylaxis Plan VTE Prophylaxis will be ordered: Yes Supervising Physician Co-Signing Physician Notes Patient seen and examined, chart reviewed, case discussed with VERONICA Fu and I agree with the assessment and plan as above. In brief, patient is a 69-year-old female with history of hyperlipidemia presenting with transient episode of aphasia. Patient experienced similar episode in October 2023 and was diagnosed with a TIA. She is compliant with her daily Plavix and statin (atorvastatin 40 daily) Presently with no neurological complaints. Reports that her prior symptoms have resolved completely. She did have a dull headache upon arrival which has also resolved. On physical exam she is afebrile, hypertensive skinno rash HEENTmoist mucous membranes, neck supple, no JVD Heart+ S1, S2, regular, faint systolic ejection murmur on left sternal border Lungs CTA Abdomen soft, nontender, nondistended Neurosensation intact, strength 5 out of 5 in upper lower extremities bilaterally, speech is clear and appropriate Labs and images reviewed Assessment/plan 69-year-old female with history of prior TIA presenting with transient episode of aphasia. Symptoms have now resolved Admit to medical to complete stroke workup Check MRI Check lipids and hemoglobin A1c Continue Plavix, will add aspirin 81 mg p.o. daily. ABCD2 score = 3 Remainder as above PG Care Time/CCT Total # of Minutes Spent Total Time Spent with Patient: Total time spent is greater than 50% in coordination of care (as documented) at patient's floor/unit and/or counseling patient: Coding Level of Care Code 09974 INT INP/OBS CARE MIN Diagnoses Aphasia R47.01 Hx of transient ischemic attack (TIA) Z86.73 Hypertension I10 Prediabetes R73.03
[2024-09-18] MEDS: ASPIRIN 81 MG ECTAB PO STA (01:37)
[2024-09-18] MEDS ORDERED: ONDANSETRON INJ 2 MG/ML 2 ML VIAL IV PRN (01:58)
[2024-09-18] MEDS ORDERED: DICLOFENAC SOD 1% GEL 100 GM TUBE EXT PRN (01:58)
[2024-09-18] MEDS ORDERED: DOCUSATE SODIUM 100 MG CAP PO PRN (01:58)
[2024-09-18] MEDS ORDERED: MELATONIN 3 MG TAB PO PRN (01:58)
[2024-09-18] MEDS ORDERED: PHARMACIST DISCHARGE MED REC CONSULT PRN (01:58)
[2024-09-18] MEDS ORDERED: DEXTROSE 50% 50 ML SYRINGE IV PRN (03:30)
[2024-09-18] MEDS ORDERED: GLUCOSE 10 TAB/TUBE PO PRN (03:30)
[2024-09-18] MEDS ORDERED: GLUCOSE 40% GEL 15 GM TUBE PO PRN (03:30)
[2024-09-18] MEDS ORDERED: GLUCAGON FOR INJ 1 MG VIAL SQ PRN (03:30)
[2024-09-18] MEDS ORDERED: CARBOHYDRATES FOR HYPOGLYCEMIA PO PRN (03:30)
[2024-09-18 06:48] LABS: Basophils # (auto) 0.04 K/uL (0.00-0.20); Basophils % (auto) 0.5 %; Eosinophils # (auto) 0.24 K/uL (0.00-0.50); Hematocrit (blood only) 37.8 % (37.0-47.0); Hemoglobin 12.4 g/dl (12.0-16.0); Immature Granulocytes # (auto) 0.02 K/uL (0.01-0.20); Immature Granulocytes % (auto) 0.2 %; Lymphocytes # (auto) 3.46 K/uL (1.20-3.40); Lymphocytes % (auto) 42.6 %; Mean Corpuscular Hemoglobin 28.9 pg (25.0-34.0); Mean Corpuscular Hgb Conc 32.8 g/dL (32.0-36.0); Mean Corpuscular Volume 88.1 fL (80.0-100.0); Monocytes % (auto) 8.6 %; Neutrophils # (auto) 3.66 K/uL (1.40-6.50); Neutrophils % (auto) 45.1 %; Platelet Count 251 K/uL (130-400); RDW Coefficient of Variation 13.8 % (11.5-14.5); RDW Standard Deviation 44.5 fL (36.4-46.3); Red Blood Count 4.29 M/uL (4.20-5.40); White Blood Count 8.12 K/ul (4.8-10.8)
[2024-09-18 07:08] LABS: Chol HDL Ratio 4.3 (0-5)
[2024-09-18 07:27] LABS: Estimated Average Glucose 131 mg/dl; Hemoglobin A1C 6.2 % (4.5-5.6)
[2024-09-18 08:28] VITALS: O2SAT 96
[2024-09-18] MEDS ORDERED: metFORMIN HCL 500 MG TAB PO SCH (09:00)
--- NOTE | 2024-09-18 09:37 | Electrocardiogram Report ---
Test Reason : Blood Pressure : */* mmHG Vent. Rate : 78 BPM Atrial Rate : 78 BPM P-R Int : 172 ms QRS Dur : 96 ms QT Int : 396 ms P-R-T Axes : 48 -32 5 degrees QTcB Int : 451 ms Normal sinus rhythm Left axis deviation Incomplete right bundle branch block Septal infarct (cited on or before 05-Nov-2023) Abnormal ECG When compared with ECG of 17-May-2024 15:00, No significant change was found Confirmed by Victorino Beatty ([id number]) on 09/18/2024 9:37:29 AM Referred By: REFERRED SELF Confirmed By: Victorino Beatty
[2024-09-18] MEDS: INSULIN ASPART PER UNIT CHARGE SC SCH (09:42)
[2024-09-18] MEDS: ASPIRIN 81 MG ECTAB PO SCH (09:43)
[2024-09-18] MEDS: lisinopril 10 MG TAB PO SCH (09:43)
[2024-09-18] MEDS: CLOPIDOGREL BISULFATE 75 MG TAB PO SCH (09:43)
--- NOTE | 2024-09-18 10:41 | Magnetic Resonance Report ---
MR brain wo con CLINICAL HISTORY: stroke workup COMPARISON STUDY: 11/01/[address] scans yesterday FINDINGS: There is motion artifact. There is a small area of linear increased signal on the diffusion -weighted imaging anterior medial left frontal lobe series 3 image 25. There is motion artifact in th is region. No restricted diffusion seen otherwise. No mass effect, midline shift, or hydrocephalus. T here are stable scattered small foci of decreased signal on the gradient echo imaging. There are stab le scattered foci of increased FLAIR signal intensity in the periventricular white matter which usual ly represent chronic small vessel ischemic changes. IMPRESSION: 1. Motion artifact versus small acute infarction anterior medial left frontal lobe. No other evidence of acute infarction seen. 2. Otherwise as described. ACT 112: Negative or not required by law. Electronically signed by: Curtis Francisco M.D. 09/18/2024 10:39 AM
[2024-09-18 11:33] VITALS: BP 162/91; PULSE 62; RESP 18; TEMP 97.9
--- NOTE | 2024-09-18 13:23 | Communication Note ---
Date of Service: September 18, 2024 By CMS guidelines, a determination that the admission or continued stay is not medically necessary has been made by a member of the UR committee and a phys ician for this hospital stay, therefore a Code 44 will be completed and the Inpatient admission will be changed to outpatient.
--- NOTE | 2024-09-18 13:30 | Discharge Summary ---
Discharge Summary Date of Service September 18, 2024 Principal Dx & Hospital Course #1 = Principal Diagnosis (1) Aphasia: (2) Hx of transient ischemic attack (TIA): (3) Hypertension: (4) Prediabetes: Plan Patient is a 69-year-old female with past medical history of TIA October 2023, traumatic subarachnoid hemorrhage 2018, hyperlipidemia, hypertension, asthma, prediabetes, GERD, sleep apnea, osteoarthritis. Patient presented with an episode of transient aphasia in which she was unable to formulate a sentence when speaking with her daughter. Symptom lasted only a few seconds at 1800 4/12 and has not reoccurred. Her left pupil is dilated on exam but otherwise neurologic exam is WNL and no focal deficits noted. Diagnostic imaging in the ED was essentially negative. She is being admitted for stroke workup including MRI. #Transient aphasia, suspected CVA History of traumatic subarachnoid hemorrhage 2018. TIA 2023, follows with neurology. Was previously on aspirin and Plavix around her TIA, reports she is also on DAPT for period of time around the surgery. Has been on Plavix monotherapy for several months Had an episode of expressive aphasia which was sudden onset that only lasted around a minute MRIbrain showed a small acute infarction of the anterior medial left frontal lobe versus motion artifact, no evidence of acute infarct. CTAhead/neck without acute findings, CThead without acute findings Patient did endorse a lot of stress and had slept poorly prior to the episode. Given possible left frontal lobe infarct and history of TIA she was continued on DAPT, statin therapy, and referred for follow-up with neurology. She is ambulating independently with good strength at time of discharge. Was provided with a prescription for outpatient physical therapy Prior echo with no evidence of PFO. No chest pain prior to episode, sinus on admission Family history of Alzheimer's dementia Ilda reports a family history of Alzheimer's and is very concerned about this. She had appropriate memory, affect and linear thought process during admission was generally not forgetful. Reassurance was provided however discussed that she could have MoCA testing as an outpatient with either her PCP or neurologist in follow-up Transaminitis Patient has had an intermittent mild transaminitis in the past, LFTs were normal on evaluation Use Tylenol frequently at home, no use immediately prior to admission. Cautious use/avoidance of this due to mild transaminitis was discussed during admission Admission HPI Per Admitting Provider Patient is a 69-year-old female with past medical history of TIA October 2023, traumatic subarachnoid hemorrhage 2018, hyperlipidemia, hypertension, asthma, prediabetes, GERD, sleep apnea, osteoarthritis. Patient presented with an episode of transient aphasia in which she was unable to formulate a sentence when speaking with her daughter. Symptom lasted only a few seconds at 1800 on 09/17 and has not reoccurred. Her left pupil is dilated on exam but otherwise neurologic exam is WNL and no focal deficits noted. Diagnostic imaging in the ED was essentially negative. She is being admitted for stroke workup including MRI. Patient seen at bedside with her daughter present. She stated that as around 6:00 she threw her dog's toy away because the rubber was showing and when her daughter asked her why she threw it away she was unable to respond. Symptoms resolved within a few seconds. Patient stated that when she put her glasses on she noticed the right eye was blurry however when she lifted her glasses up it resolves, she believes her glasses may have been dirty but she could have a had a couple seconds of right eye blurry vision. Patient stated when she had her TIA in 2023 she believes she had similar symptoms which resulted in mumbling of her words however she cannot exactly remember. Patient does endorse headache upon arrival to the ED however it is since resolved at time of admission. She thought her symptoms might have been because she has had poor sleep at home and continues to wake up at 4 AM daily. She has been checking her blood sugars and they have been stable, did go as low as 88 a few days ago. She otherwise denies any other strokelike symptoms, no numbness/tingling, no visual changes, no facial droop. Patient is most concerned about preventing further TIAs or strokes, extensively educated on medication compliance (which she does endorse being compliant on), healthy diet, etc. Patient does not use nicotine products. Patient was very concerned about taking Tylenol twice daily for several months due to having her left knee replaced and having residual pain. She also takes Tylenol to help with a hernia that is to be repaired in the near future. Patient noted that she had transaminitis several months ago thought to be secondary to Tylenol use, alk phos is mildly elevated at time of admission. Educated patient to try to titrate off Tylenol and consider other options like Voltaren gel and fish oil as do not recommend long-term NSAID use for pain either. Discharge Exam General: A&Ox3. NAD. Cooperative. HEENT: Atraumatic, normocephalic. Vision and hearing grossly intact, pupils equal and reactive to light Pulm: CTAB A&P. -wheezes, -rales, -rhonchi. Symmetrical chest rise. No increased work of breathing. No respiratory distress. Cardiac: RRR, -mrg. Radial pulses intact and symmetrical. Abdominal: Nontender, nondistended, soft. BS present. Extremities: Guest Relations Representative strength, elbow flexion/extension, hip flexion, ankle dorsiflexion/plantarflexion 5/5 bilaterally. Sensation intact in hands and feet without asymmetry Discharge Plan Discharge Items Patient Disposition: Home - Self-Care Reason For Visit: TRANSIENT APHASIA,STROKE WORKUP Discharge Diagnosis: TIA Activity: Resume your previous activity Non-emergency contact: Primary Care Provider Call non-emergency contact if: you have any medication questions, your symptoms worsen and your pain is not controlled Follow-up/Referrals: Ashley Oakes CRNP [Primary Care Provider] - Fuad Mckenzie MD [Physician] - Diet: Heart Healthy Addtl Attending Provider Instructions: You were seen in the hospital for an episode of expressive aphasia/difficulty speaking. Your CThead and CT scan of blood vessels of the head and neck did not show any evidence of an acute blockage. An MRI showed a small area of the medial left frontal lobe which could be a small stroke, but may also have been motion artifact. There was no other evidence of acute stroke seen. Your symptoms may have been caused by a very small stroke. It is recommended that you take both aspirin 81 mg and Plavix 75 mg daily for this. As you are already on Plavix when this occurred, and there is suggestion that there may have been an area of stroke on your MRI is recommended that you remain on both aspirin and Plavix unless advised otherwise by your neurologist at follow-up. Both you and family motorist had concerns for potential Alzheimer's dementia contributing to symptoms. There is a low suspicion for dementia causing the symptoms you experienced in the hospital. A follow-up appointment is being scheduled for you with neurology to discuss stroke follow-up and potential neurocognitive testing and further evaluation of dementia. You are ambulating well with good strength at time of discharge. You are discharged home with a prescription for outpatient physical therapy. If you develop any new or worsening symptoms including fever, chills, sweats, chest pain, chest pressure, difficulty breathing, uncontrolled nausea/vomiting, rash, wheezing, passing out or nearly passing out, bleeding, black/bloody bowel movements, or other new or concerning symptoms please call your primary care physician, or call 911 for re-evaluation in the emergency department if you are very concerned. Pending Studies at Discharge: No Stand-Alone Forms: My [facility] [employer], Smoking Cessation Medications and DC Order Prescriptions: New aspirin 81 mg Tablet,Delayed Release (Dr/Ec) 81 mg PO QAM Qty: 30 0RF Continued atorvastatin [Lipitor] 40 mg tablet 40 mg PO QPM Qty: 30 2RF metformin 500 mg tablet 500 mg PO BID Qty: 60 2RF famotidine 40 mg tablet 40 mg PO QPM Qty: 30 2RF clopidogrel [Plavix] 75 mg tablet 75 mg PO QAM Qty: 30 2RF ondansetron 4 mg tablet,disintegrating 4 mg PO Q6H PRN (Reason: nausea and vomiting) Qty: 14 0RF magnesium 500 mg Tablet 15 mg PO QPM Juice Plus Fruit 1 cap PO QAM Juice Plus Vegetable 1 cap PO QAM rabeprazole [AcipHex] 20 mg tablet,delayed release (DR/EC) 20 mg PO QPM Rx Instructions: TAKE 1 TABLET BY MOUTH ONCE DAILY AT BEDTIME lisinopril [Zestril] 10 mg tablet 10 mg PO QAM metoprolol succinate 25 mg tablet extended release 24 hr 25 mg PO BID Rx Instructions: TAKE 1 TABLET BY MOUTH TWICE DAILY cholecalciferol (vitamin D3) 125 mcg (5,000 unit) tablet 125 mcg PO QAM Rx Instructions: otc unable to verify Discharge Orders: Discharge Order (Routine); Ordered 09/18/24 Ordered By: Dylan Guzman Admission Data Admit Date/Time: 09/18/24 00:38 Attending Provider: Dylan Guzman Admit Provider: Sarah Trujillo Primary Care Provider: Ashley Oakes Other Providers: Sarah Trujillo Hospital Stay Data Consultations 09/17/24 23:26 ED Decision to Admit Stat Diagnostic Imagining Performed 09/17/24 21:29 CT angio head w con Stat CT angio neck with con Stat CT head/brain wo con Stat 09/18/24 00:24 MRI Brain [MR brain wo con] Routine Pending Results Patient Have Any Pending Studies at Discharge: No Discharge Instructions Given to Patient (Per Discharging Provider) You were seen in the hospital for an episode of expressive aphasia/difficulty speaking. Your CThead and CT scan of blood vessels of the head and neck did not show any evidence of an acute blockage. An MRI showed a small area of the medial left frontal lobe which could be a small stroke, but may also have been motion artifact. There was no other evidence of acute stroke seen. Your symptoms may have been caused by a very small stroke. It is recommended that you take both aspirin 81 mg and Plavix 75 mg daily for this. As you are already on Plavix when this occurred, and there is suggestion that there may have been an area of stroke on your MRI is recommended that you remain on both aspirin and Plavix unless advised otherwise by your neurologist at follow-up. Both you and family motorist had concerns for potential Alzheimer's dementia contributing to symptoms. There is a low suspicion for dementia causing the symptoms you experienced in the hospital. A follow-up appointment is being freya eduled for you with neurology to discuss stroke follow-up and potential neurocognitive testing and further evaluation of dementia. You are ambulating well with good strength at time of discharge. You are discharged home with a prescription for outpatient physical therapy. If you develop any new or worsening symptoms including fever, chills, sweats, chest pain, chest pressure, difficulty breathing, uncontrolled nausea/vomiting, rash, wheezing, passing out or nearly passing out, bleeding, black/bloody bowel movements, or other new or concerning symptoms please call your primary care physician, or call 911 for re-evaluation in the emergency department if you are very concerned. Total Time Total Time Spent Total Time Spent (In Minutes): Time spend day of discharge 50 minutes including direct patient care, documentation, review of labs and images, and coordination of care. Coding Level of Care Code 54838 INP/OBS DISCH >30 MIN Diagnoses Aphasia R47.01 Hx of transient ischemic attack (TIA) Z86.73 Hypertension I10 Prediabetes R73.03
[2024-09-18] MEDS ORDERED: STROKE PATIENT DISCHARGE STA (13:41)
[2024-09-18] MEDS ORDERED: FAMOTIDINE 40 MG TABLET PO SCH (21:00)
[2024-09-18] MEDS ORDERED: NON-FORMULARY MEDICATION (Magnesium 500 mg Tablet) PO SCH (21:00)
[2024-09-18] MEDS ORDERED: ATORVASTATIN 40 MG TAB PO SCH (21:00)
[2024-09-18] MEDS ORDERED: PANTOprazole 40 MG TAB PO SCH (21:00)
== END 2024-09-18 15:52 | disposition home or self-care (01) | DRG 93 ==
LOC: ED 20:57 → 2N 09-18 00:38 → INTOOBSV 09-18 00:38 → SUATTDRO 09-18 00:38 → 2N 09-18 01:40